=== PATIENT | male | born 1990 | race Hispanic/Latino ===

== ENCOUNTER 2017-11-29 00:39 | Inpatient (IN) | payer MEDICAID ==
[2017-11-29] MEDS ORDERED: levETIRAcetam 1,000 MG in Sodium Chloride 0.9% 100 ML IVPB STA (01:06)
[2017-11-29] MEDS ORDERED: Sodium Chloride 0.9% 1,000 ML IV ONE (01:07)
[2017-11-29] MEDS ORDERED: levETIRAcetam 500 MG in Sodium Chloride 0.9% 100 ML IVPB SCH (01:15)
[2017-11-29 01:29] LABS: BASO # 0.2 K/uL (0.0-0.2); BASO % 2.2 % (0.0-2.0); EOS # 0.4 K/uL (0.0-0.7); EOS % 3.1 % (0.0-4.0); HEMOGLOBIN 15.8 g/dL (12.0-18.0); LYMPH # 2.9 K/uL (1.0-4.3); MEAN CELL VOLUME 103.3 fL (80.0-94.0); MEAN CORPUSCULAR HEMOGLOBIN 35.8 pg (27.0-31.0); MEAN CORPUSCULAR HGB CONC 34.7 g/dL (33.0-37.0); MEAN PLATELET VOLUME 9.6 fL (7.2-11.7); MONO # 1.9 K/uL (0.0-0.8); MONO % 16.7 % (0.0-10.0); NEUT # 5.9 K/uL (1.8-7.0); RBC 4.42 Mil/uL (4.40-5.90); RED CELL DISTRIBUTION WIDTH 13.1 % (11.5-14.5); WHITE BLOOD COUNT 11.3 K/uL (4.8-10.8)
--- NOTE | 2017-11-29 01:50 | C.PDOC ---
History Of Present Illness 27 year old male with PMhx of pancreatitis is brought to the ED by family for evaluation of witnessed seizure. Patient's mother reports patient had generalized seizure, shaking all over that lasted for 3 minutes today [employer] REPA[employer]. Patient was recently in detox for alcohol, ex opioid abuser. Patient was recently diagnosed last week with pancreatitis secondary to alcoholism. Patient is also taking subutex and xanax. Patient states he has not had a drink in the last 8 days. Patient had another witnessed seizure while in the ED. Time Seen by Provider: 11/29/17 00:50 Chief Complaint (Nursing): Seizure History Per: Patient, Family History/Exam Limitations: clinical condition Recent Seizure Activity Began: Just Before Arrival Number Of Seizures: Multiple (2) Length Of Seizures (Duration): Minutes Quality Of Seizure: Generalized Precipitating Factor(s): Other Associated Symptoms: Bit Tongue Recent travel outside of the [place]: No Additional History Per: Patient Past Medical History Reviewed: Historical Data, Nursing Documentation, Vital Signs Vital Signs: Last Vital Signs Temp 98.4 F 11/29/17 00:45 Pulse 77 11/29/17 05:33 Resp 20 11/29/17 05:33 BP 120/77 11/29/17 05:33 Pulse Ox 97 11/29/17 05:33 - Medical History PMH: Anxiety, Pancreatitis, Seizures (4 yr ago r/t benzo withdrawal) Denies: Diabetes, Hepatitis, HIV, HTN, Chronic Kidney Disease, Sexually Transmitted Disease Surgical History: No Surg Hx - [facility] Procedures DETOXIFICATION SERVICES FOR SUBSTANCE ABUSE TREATMENT (04/30/16) GROUP STRETCHING MACHINE TENDER FRAME FOR SUBSTANCE ABUSE TREATMENT, PSYCHOEDUCATION (04/30/16) INDIV STRETCHING MACHINE TENDER FRAME FOR SUBSTANCE ABUSE TREATMENT, PSYCHOEDUCATION (04/30/16) INDIV STRETCHING MACHINE TENDER FRAME FOR SUBSTANCE ABUSE, COGNITIVE BEHAVIORAL (04/30/16) INDIV PSYCHOTHERAPY FOR SUBSTANCE ABUSE TREATMENT, SUPPORT (04/30/16) Family History: States: Unknown Family Hx - Social History Hx Tobacco Use: Yes Hx Alcohol Use: Yes (2 -3 pints vodka) Hx Substance Use: Yes (will not disclose) - Immunization History Hx Tetanus Toxoid Vaccination: Yes Hx Influenza Vaccination: Yes Hx Pneumococcal Vaccination: Yes Review Of Systems Constitutional: Negative for: Fever, Chills Eyes: Negative for: Pain, Vision Change ENT: Negative for: Ear Pain, Ear Discharge, Nose Congestion, Mouth Pain Cardiovascular: Negative for: Chest Pain, Palpitations, Edema, Light Headedness Respiratory: Negative for: Cough, Shortness of Breath Gastrointestinal: Negative for: Nausea, Vomiting, Abdominal Pain Genitourinary: Negative for: Dysuria, Incontinence, Hematuria Musculoskeletal: Negative for: Neck Pain, Shoulder Pain, Arm Pain, Back Pain Skin: Negative for: Rash Neurological: Negative for: Weakness, Numbness, Incoordination, Headache, Dizziness Physical Exam - Physical Exam Appears: Non-toxic Skin: Normal Color, Warm, Dry Head: Atraumatic, Normacephalic Eye(s): bilateral: Normal Inspection, PERRL, EOMI Ear(s): Bilateral: Normal Oral Mucosa: Moist Tongue: No Normal Appearing Lips: Normal Appearing Teeth: Normal Dentition Gingiva: Normal Appearing Throat: Normal Neck: Normal ROM, Supple Chest: Symmetrical Cardiovascular: Rhythm Regular Respiratory: Normal Breath Sounds, No Rales, No Rhonchi, No Wheezing Gastrointestinal/Abdominal: Soft, No Tenderness, No Guarding, No Rebound Extremity: Normal ROM, No Tenderness, No Swelling Neurological/Psych: Oriented x3, Normal Speech, Normal Motor, Normal Sensation Gait: Steady ED Course And Treatment - Laboratory Results Result Diagrams: 11/29/17 01:21 11/29/17 01:21 O2 Sat by Pulse Oximetry: 98 (ON RA) Pulse Ox Interpretation: Normal - Radiology CXR: Interpreted by Me, Viewed By Me CXR Interpretation: Yes: No Acute Disease. No: Infiltrates Critical Care Time - Critical Care Note Total Time (in mins): 30 Documented critical care: time excludes all time spent performing seperately billable procedures. Medical Decision Making Medical Decision Making: Plan: * Labs * white count - 11 * CXR- ordered and reviewe - no acute pathology * Ativan 2 mg (x2) with siezure resolution * IV fluids * Keppra 500 mg IVPB * UA anion gap 21. lactic acid elevated lipase almost 3000. aggressive fluid hydration While interviewing the patient, patient had another seizure. ativan and keppra were given. Patient still shaking. 2:30 - Paged Dr. Gray for admission 2:35- Spoke with Dr. Marie ICU who came down and evaluated the patient/ does not feel pt status requires ICU care at this time 2:45 - paged Dr. Gray for a second time 3:04 - called Dr. Gray for a third time pt resting. alcohol withdrawal symptoms with seizures; Disposition - Disposition Disposition: HOSPITALIZED Disposition Time: 06:31 Condition: GUARDED - Clinical Impression Clinical Impression: Seizure, Tonic-clonic seizure, Acute pancreatitis, Alcohol withdrawal - Scribe Statement The provider has reviewed the documentation as recorded by the Scribe Jacques Wellington All medical record entries made by the Scribe were at my direction and personally dictated by me. I have reviewed the chart and agree that the record accurately reflects my personal performance of the history, physical exam, medical decision making, and the department course for this patient. I have also personally directed, reviewed, and agree with the discharge instructions and disposition.
[2017-11-29 02:03] LABS: ALB/GLOB RATIO 1.5 (1.0-2.1); ALT/SGPT 373 U/L (21-72); AST/SGOT 171 U/L (17-59); BLOOD UREA NITROGEN 6 mg/dL (9-20); CALCIUM 10.4 mg/dl (8.6-10.4); GFR NON-AFRICAN AMERICAN > 60; LIPASE 2991 U/L (23-300)
--- NOTE | 2017-11-29 03:02 | CP.PCM.CON ---
History of Present Illness - History of Present Illness History of Present Illness: CCM 27 yo male with hx pancreatitis /etoh abuse/ seizures who had seizure at home then again in ED. Pt treated with ativan 4mg IV and started on KeppraPt claims pancreatitis 1 week ago and no ETOH in 1 week. Claims only minimal abd. discomfort. No n /v /sob /fever/urinary sx. ROS- as noted All- PCN Social +tob/ + etoh/ no drugs Meds- reviewed FH- Unknown Awake, responsive, apropriate Perrl Neck- no jvd lungs- bilat bs heart-rr Abd- bs+, soft,no localized tenderness Ext- no edema Neuro-oriented, nonfocal Labs & [id number] A&P Seizure Pancreatitis Transaminitis ETOH Abuse r/o ETOH Withdrawal Anxiety cont Keppra Ativan prn observe for withdrawal maintain optimal lytes f/u labs/ lipase consider CT Abd DVT prophylaxis d/w ED staff re-consult PRN Past Patient History - Infectious Disease Hx of Infectious Diseases: None - Past Social History Smoking Status: Current Some Days Smoker - CARDIAC Hx Hypertension: No - PULMONARY Hx Respiratory Disorders: No Hx Tuberculosis: No - NEUROLOGICAL Hx Seizures: Yes (4 yr ago r/t benzo withdrawal) - HEENT Hx HEENT Problems: No - RENAL Hx Chronic Kidney Disease: No - ENDOCRINE/METABOLIC Hx Endocrine Disorders: No - HEMATOLOGICAL/ONCOLOGICAL Hx Human Immunodeficiency Virus (HIV): No - INTEGUMENTARY Hx Dermatological Problems: No - MUSCULOSKELETAL/RHEUMATOLOGICAL Hx Musculoskeletal Disorders: No Hx Falls: No - GASTROINTESTINAL Hx Pancreatitis: Yes - GENITOURINARY/GYNECOLOGICAL Hx Sexually Transmitted Disorders: No - PSYCHIATRIC Hx Anxiety: Yes Hx Substance Use: Yes (will not disclose) - SURGICAL HISTORY Hx Surgeries: Yes Other/Comment: Adenoidectomy, - ANESTHESIA Hx Anesthesia: Yes Hx Anesthesia Reactions: No Meds Allergies/Adverse Reactions: Allergies Allergy/AdvReac Type Severity Reaction Status Date / Time Penicillins Allergy SWELLING Verified 11/29/17 00:44 Results - Vital Signs Recent Vital Signs: Last Vital Signs Temp 98.4 F 11/29/17 00:45 Pulse 105 H 11/29/17 02:59 Resp 24 11/29/17 02:59 BP 118/69 11/29/17 02:59 Pulse Ox 99 11/29/17 02:59 - Labs Result Diagrams: 11/29/17 01:21 11/29/17 01:21 Labs: Laboratory Results - last 24 hr 11/29/17 11/29/17 01:21 01:21 WBC 11.3 H D RBC 4.42 Hgb 15.8 D Hct 45.7 MCV 103.3 H MCH 35.8 H MCHC 34.7 RDW 13.1 Plt Count 319 D MPV 9.6 Neut % (Auto) 52.0 Lymph % (Auto) 26.0 [place] % (Auto) 16.7 H Eos % (Auto) 3.1 Baso % (Auto) 2.2 H Neut # (Auto) 5.9 Lymph # (Auto) 2.9 [place] # (Auto) 1.9 H Eos # (Auto) 0.4 Baso # (Auto) 0.2 Sodium 141 Potassium 3.7 Chloride 102 Carbon Dioxide 23 Anion Gap 21 H BUN 6 L Creatinine 0.7 L Est GFR ( Amer) > 60 Est GFR (Non-Af Amer) > 60 Random Glucose 133 H Calcium 10.4 Total Bilirubin 1.1 AST 171 H D ALT 373 H Alkaline Phosphatase 109 Total Protein 8.4 H Albumin 5.0 Globulin 3.4 Albumin/Globulin Ratio 1.5 Lipase 2991 H Assessment & Plan (1) Seizure Status: Acute (2) Alcohol withdrawal Status: Acute (3) Pancreatitis Status: Acute (4) Transaminitis Status: Acute
[2017-11-29] MEDS ORDERED: Folic Acid 1 MG, Thiamine 100 MG, Multivitamin (MVI) 10 ML in Dextrose 5% In Water 1,00... IV SCH (04:15)
[2017-11-29 04:56] LABS: SQUAMOUS EPITHIAL < 1 /hpf (0-5); URINE BILIRUBIN NEGATIVE (NEGATIVE); URINE BLOOD NEGATIVE (NEGATIVE); URINE CLARITY Clear (Clear); URINE COLOR Yellow (YELLOW); URINE GLUCOSE (UA) NORMAL (Normal); URINE LEUKOCYTE ESTERASE NEG Leu/uL (Negative); URINE PROTEIN NEGATIVE (NEGATIVE); URINE UROBILINOGEN NORMAL mg/dL (0.2-1.0)
[2017-11-29 05:04] LABS: BARBITURATES, UR NEGATIVE (NEGATIVE); OPIATES, UR NEGATIVE (NEGATIVE); PHENCYCLIDINE, UR NEGATIVE (NEGATIVE)
[2017-11-29 05:12] LABS: BENZODIAZEPINES, UR POSITIVE (NEGATIVE)
--- NOTE | 2017-11-29 09:32 | RAD ---
Date of service: 11/29/2017 PROCEDURE: CHEST RADIOGRAPH, 1 VIEW HISTORY: abd pain COMPARISON: Comparison chest 11/21/2017 FINDINGS: LUNGS: Clear. PLEURA: No pneumothorax or pleural fluid seen. CARDIOVASCULAR: Normal. OSSEOUS STRUCTURES: No significant abnormalities. VISUALIZED UPPER ABDOMEN: Normal. OTHER FINDINGS: None. IMPRESSION: No active disease.
--- NOTE | 2017-11-29 12:19 | PCM.PSYCH ---
Initial Psychiatric Evaluation - Initial Psychiatric Evaluation Type of Admission: Voluntary Legal Status: Capacity Chief Complaint (in patient's own words): "I had a seizure" History of Present Illness and Precipitating Events: pt is a 27 y/o M, single, no children, living with his parents at home. Pt with hx of pancreatitis/ EtOh abuse/ seizures presented to the ER earlier today due to seizure that occur yesterday. pt had pancreatitis 1 week ago and was admitted to the hospital and discharged 2 days ago. pt was home yesterday when the seizure occurred, his mom called EMS and he was brought to [facility]. pt states he does not remember what happened before the seizure and he was "out for 4 mins". pt had similar seizure 2 years ago due to detoxing from alcohol. pt has a hx of alcohol abuse, started drinking alcohol at the age of 13-14 and drinks 2-3 pints per day of vodka on average. pt's last drink was 1 week ago. pt has multiple detox attempts from alcohol and polysubstance abuse. longest detox was 2 months at a program in [place]. pt also has a hx of xanax and oxycotin in the past. Last xanax dosage was 20 days ago. pt has not used oxycotin in "many years". pt smokes 1PPD. pt denies depression, SI/HI, hallucinations, manic symptoms, paranoia, anxiety, chills Psych Hx: unremarkable Medical hx: Unremarkable Family Psych: unremarkable Legal Hx: Unremarkable Current Medications: Active Medications Generic Name Dose Route Start Last Admin Trade Name Freq PRN Reason Stop Dose Admin Famotidine 20 mg 11/29/17 10:00 Pepcid IVP DAILY CITLALI Folic Acid 1 mg/ Thiamine HCl 1,011.2 mls @ 100 mls/hr 11/29/17 04:15 04:52 100 mg/ Multivitamins/Vitamin IV 100 mls/hr C 10 ml/ Dextrose .Q10H7M CITLALI Administration Lorazepam 2 mg 11/29/17 04:50 11/29/17 04:52 Ativan IVP 2 mg Q4 PRN Administration Agitation Past Psychiatric History - Past Psychiatric History Pertinent Medical Hx (Current Medical&Sleep Prob, Allergies): Allergies Allergy/AdvReac Type Severity Reaction Status Date / Time Penicillins Allergy SWELLING Verified 11/29/17 00:44 No Known Home Med 11/29/17 Review of Systems - Psychiatric Psychiatric: Anxiety. absent: Auditory Hallucinations, Depression, Hallucinations, Homicidal Ideation, Paranoia, Suicidal Ideation, Visual Hallucinations, Tactile Hallucinations Mental Status Examination - Personal Presentation Personal Presentation: Looks stated age - Affect Affect: Broad - Motor Activity Motor Activity: Calm - Reliability in Providing Information Reliability in Providing Information: Good - Speech Speech: Organized - Mood Mood: Neutral - Formal Thought Process Formal Thought Process: No Impairment - Obsessions/Compulsions Obsessions: No Compulsions: No - Cognitive Functions Orientation: Person, Place, Situation, Time Sensorium: Alert - Risk Risk: Seizure DSM 5 DX - DSM 5 DSM 5 Diagnosis: Seizure disorder EtOh Withdrawal EtOH abuse disorder - Recommended/Plan of Treatment Treatment Recommendations and Plan of Treatment: Ativan for Alcohol Withdrawal As need medications All risks, benefits and alternatives of the meds discussed, and the pt agreed and understood. Attend groups and activities Individual therapy daily Psychoeducation and support daily Encourage compliance with meds and after care Refer to outpatient program Teach healthy lifestyle methods, i.e. diet, exercise, meditation Smoking cessation and patch if needed
--- NOTE | 2017-11-29 15:44 | US ---
Date of service: 11/29/2017 HISTORY: pancreaittis COMPARISON: 11/21/[address] of the abdomen TECHNIQUE: Sonographic evaluation of the abdomen. FINDINGS: LIVER: Measures enlarged at 21.5 cm. Diffuse increased echogenicity of the liver parenchyma. No mass. No intrahepatic bile duct dilatation. GALLBLADDER: Unremarkable. No gallstones. COMMON BILE DUCT: Measures 3 mm. No stones. No dilatation. PANCREAS: Unremarkable as visualized. No mass. No ductal dilatation. RIGHT KIDNEY: Measures 11 point sick by 4.4 x 5.5cm. Normal echogenicity. No calculus, mass, or hydronephrosis. LEFT KIDNEY: Measures 10.6 x 5.2 x 5.2cm. Normal echogenicity. No calculus, mass, or hydronephrosis. SPLEEN: Normal in size and contour. No mass. AORTA: No aneurysmal dilatation. IVC: Unremarkable. OTHER FINDINGS: None. IMPRESSION: Hepatomegaly with diffuse increased echogenicity compatible with hepatic steatosis No gallbladder or discrete pancreatic pathology noted
[2017-11-29] MEDS: Dextrose 5%/0.45% NS 1,000 ML IV SCH (15:48)
--- NOTE | 2017-11-29 22:12 | CP.PCM.HP ---
Past Patient History - Infectious Disease Hx of Infectious Diseases: None - Past Medical History & Family History Past Medical History?: Yes - Past Social History Smoking Status: Heavy Smoker > 10 Cigarettes Daily - CARDIAC Hx Hypertension: No - PULMONARY Hx Respiratory Disorders: No Hx Tuberculosis: No - NEUROLOGICAL Hx Seizures: Yes (4 yr ago r/t benzo withdrawal) - HEENT Hx HEENT Problems: No - RENAL Hx Chronic Kidney Disease: No - ENDOCRINE/METABOLIC Hx Endocrine Disorders: No - HEMATOLOGICAL/ONCOLOGICAL Hx Human Immunodeficiency Virus (HIV): No - INTEGUMENTARY Hx Dermatological Problems: No - MUSCULOSKELETAL/RHEUMATOLOGICAL Hx Falls: No - GASTROINTESTINAL Hx Pancreatitis: Yes - GENITOURINARY/GYNECOLOGICAL Hx Sexually Transmitted Disorders: No - PSYCHIATRIC Hx Anxiety: Yes Hx Substance Use: Yes (pain killers, heroin, crack, cocaine, ecstasy, javier, but pt claimed he sto) - SURGICAL HISTORY Hx Surgeries: Yes Hx Tonsillectomy: Yes Other/Comment: Adenoidectomy, - ANESTHESIA Hx Anesthesia: Yes Hx Anesthesia Reactions: No Hx Malignant Hyperthermia: No Has any member of the family had a problem w/ anesthesia?: No Meds Allergies/Adverse Reactions: Allergies Allergy/AdvReac Type Severity Reaction Status Date / Time Penicillins Allergy SWELLING Verified 11/29/17 00:44 Results - Vital Signs Recent Vital Signs: Last Vital Signs Temp 98.4 F 11/29/17 12:00 Pulse 88 11/29/17 14:04 Resp 21 11/29/17 14:04 BP 120/78 11/29/17 14:04 Pulse Ox 100 11/29/17 12:00 - Labs Result Diagrams: 11/29/17 01:21 11/29/17 01:21 Labs: Laboratory Results - last 24 hr 11/29/17 11/29/17 11/29/17 01:21 01:21 04:45 WBC 11.3 H D RBC 4.42 Hgb 15.8 D Hct 45.7 MCV 103.3 H MCH 35.8 H MCHC 34.7 RDW 13.1 Plt Count 319 D MPV 9.6 Neut % (Auto) 52.0 Lymph % (Auto) 26.0 [place] % (Auto) 16.7 H Eos % (Auto) 3.1 Baso % (Auto) 2.2 H Neut # (Auto) 5.9 Lymph # (Auto) 2.9 [place] # (Auto) 1.9 H Eos # (Auto) 0.4 Baso # (Auto) 0.2 Sodium 141 Potassium 3.7 Chloride 102 Carbon Dioxide 23 Anion Gap 21 H BUN 6 L Creatinine 0.7 L Est GFR ( Amer) > 60 Est GFR (Non-Af Amer) > 60 Random Glucose 133 H Calcium 10.4 Total Bilirubin 1.1 AST 171 H D ALT 373 H Alkaline Phosphatase 109 Total Protein 8.4 H Albumin 5.0 Globulin 3.4 Albumin/Globulin Ratio 1.5 Lipase 2991 H Urine Color Yellow Urine Clarity Clear Urine pH 6.0 Ur Specific [place] 1.008 Urine Protein Negative Urine Glucose (UA) Normal Urine Ketones Negative Urine Blood Negative Urine Nitrate Negative Urine Bilirubin Negative Urine Urobilinogen Normal Ur Leukocyte Esterase Neg Urine WBC (Auto) 3 Urine RBC (Auto) < 1 Ur Squamous Epith Cells < 1 Hyaline Casts 3-5 H Urine Opiates Screen Urine Methadone Screen Ur Barbiturates Screen Ur Phencyclidine Scrn Ur Amphetamines Screen U Benzodiazepines Scrn U Oth Cocaine Metabols U Cannabinoids Screen 11/29/17 04:45 WBC RBC Hgb Hct MCV MCH MCHC RDW Plt Count MPV Neut % (Auto) Lymph % (Auto) [place] % (Auto) Eos % (Auto) Baso % (Auto) Neut # (Auto) Lymph # (Auto) [place] # (Auto) Eos # (Auto) Baso # (Auto) Sodium Potassium Chloride Carbon Dioxide Anion Gap BUN Creatinine Est GFR ( Amer) Est GFR (Non-Af Amer) Random Glucose Calcium Total Bilirubin AST ALT Alkaline Phosphatase Total Protein Albumin Globulin Albumin/Globulin Ratio Lipase Urine Color Urine Clarity Urine pH Ur Specific [place] Urine Protein Urine Glucose (UA) Urine Ketones Urine Blood Urine Nitrate Urine Bilirubin Urine Urobilinogen Ur Leukocyte Esterase Urine WBC (Auto) Urine RBC (Auto) Ur Squamous Epith Cells Hyaline Casts Urine Opiates Screen Negative Urine Methadone Screen Negative Ur Barbiturates Screen Negative Ur Phencyclidine Scrn Negative Ur Amphetamines Screen Negative U Benzodiazepines Scrn Positive U Oth Cocaine Metabols Negative U Cannabinoids Screen Negative
[2017-11-30] MEDS: Dextrose 5%/0.45% NS 1,000 ML IV SCH ×3 (02:10→21:27)
[2017-11-30 06:48] LABS: BASO # 0.2 K/uL (0.0-0.2); BASO % 2.1 % (0.0-2.0); EOS # 0.2 K/uL (0.0-0.7); EOS % 2.6 % (0.0-4.0); HEMOGLOBIN 13.2 g/dL (12.0-18.0); LYMPH # 1.6 K/uL (1.0-4.3); MEAN CELL VOLUME 103.8 fL (80.0-94.0); MEAN CORPUSCULAR HGB CONC 34.7 g/dL (33.0-37.0); MEAN PLATELET VOLUME 9.7 fL (7.2-11.7); MONO # 1.5 K/uL (0.0-0.8); MONO % 19.6 % (0.0-10.0); NEUT # 4.3 K/uL (1.8-7.0); NEUT % 55.7 % (50.0-75.0); NRBC % 0.1 % (0.0-2.0); RBC 3.66 Mil/uL (4.40-5.90); RED CELL DISTRIBUTION WIDTH 12.7 % (11.5-14.5); WHITE BLOOD COUNT 7.8 K/uL (4.8-10.8)
[2017-11-30 06:51] LABS: ALB/GLOB RATIO 1.7 (1.0-2.1); ALBUMIN 3.9 g/dL (3.5-5.0); ALT/SGPT 240 U/L (21-72); AST/SGOT 112 U/L (17-59); BLOOD UREA NITROGEN 3 mg/dL (9-20); CALCIUM 8.8 mg/dl (8.6-10.4); GFR NON-AFRICAN AMERICAN > 60; LIPASE 1770 U/L (23-300)
--- NOTE | 2017-11-30 07:43 | HP ---
CHIEF COMPLAINT: Seizure episode x1. HISTORY OF PRESENT ILLNESS: This is a 27-year-old white male with history of alcoholism. He was recently at [facility] with pancreatitis due to alcoholism, and he was advised not to drink. He was referred back to see his primary medical doctor and to contact for alcohol detox. The patient went home. He continued to drink, he drank, and he also smokes. He denies any substance abuse, and on the day of admission, mother noticed generalized tonic-clonic seizure, shaking all over his body, lasting for few minutes prior to arrival, and there was alcohol smell, poor condition, and the patient was referred to emergency room, and the patient is hospitalized. The patient is currently in ICU. He denies any head injury. He denies seizure. He has abdominal pain. He denies any nausea or vomiting. He denies any cough, sore throat, runny nose. He denies any polyuria, polydipsia, polyphagia. He denies any hematuria, pyuria. He denies any sneezing, itchy eyes, itchy nose. He denies any joint pain, hip pain, leg pain. PAST MEDICAL HISTORY: Alcoholism, alcohol abuse. SOCIAL HISTORY: Smokes and drinks. CURRENT MEDICATIONS: Unknown. PHYSICAL EXAMINATION: GENERAL: A young male, in no distress. VITAL SIGNS: BP 120/78, pulse 74, respiratory rate 21, temperature 98.4. SKIN: No rashes. HEENT: Atraumatic, normocephalic. Negative pallor. Negative jaundice. Extraocular movements are intact. NECK: Supple. No JVD CHEST WALL: Bilaterally symmetrical expansion. LUNGS: Clear. No rales, no rhonchi. CVS: S1 and S2 regular. RECTAL AND PELVIC: Negative. EXTREMITIES: Normal. COSTUME DIRECTOR: Normal. ASSESSMENT: 1. Seizure, most likely it is alcohol induced seizure. 2. Alcoholism. 3. Pancreatitis. PLAN: Admit. Detailed orders written. Seen and examined. Polo Gray MD
[2017-11-30] MEDS: Folic Acid 1 MG, Thiamine 100 MG, Multivitamin (MVI) 10 ML in Dextrose 5% In Water 1,00... IVPB SCH (17:23)
--- NOTE | 2017-11-30 22:40 | CP.PCM.PN ---
Objective - Vital Signs/Intake and Output Vital Signs (last 24 hours): Temp Pulse Resp BP Pulse Ox 97.9 F 72 25 H 121/80 100 11/30/17 16:00 11/30/17 16:05 11/30/17 16:05 11/30/17 16:05 11/30/17 16:00 Intake and Output: 11/30/17 12/01/17 18:59 06:59 Intake Total 1340 Output Total 1375 Balance -35 - Medications Medications: Current Medications Famotidine (Pepcid) 20 mg IVP DAILY [facility] Last Admin: 11/30/17 15:15 Dose: 20 mg Folic Acid 1 mg/ Thiamine HCl 100 mg/ Multivitamins/Vitamin C 10 ml/ Dextrose 1 ,011.2 mls @ 100 mls/hr IVPB DAILY [facility] Last Admin: 11/30/17 17:23 Dose: 100 mls/hr Dextrose/Sodium Chloride (Dextrose 5%/0.45% Ns 1000 Ml) 1,000 mls @ 100 mls/hr IV .Q10H [facility] Last Admin: 11/30/17 21:27 Dose: Not Given Lorazepam (Ativan) 2 mg IVP Q4 PRN PRN Reason: Agitation Last Admin: 11/30/17 20:22 Dose: 2 mg - Labs Labs: 11/30/17 06:18 11/30/17 06:16
[2017-12-01] MEDS: Dextrose 5%/0.45% NS 1,000 ML IV SCH (02:42)
[2017-12-01 07:37] LABS: AMYLASE 174 U/L (30-110); BLOOD UREA NITROGEN 2 mg/dL (9-20); CALCIUM 9.1 mg/dl (8.6-10.4); GFR NON-AFRICAN AMERICAN > 60; LIPASE 1547 U/L (23-300)
[2017-12-01 07:52] LABS: BASO # 0.2 K/uL (0.0-0.2); BASO % 2.7 % (0.0-2.0); EOS # 0.3 K/uL (0.0-0.7); EOS % 3.9 % (0.0-4.0); HEMOGLOBIN 13.4 g/dL (12.0-18.0); LYMPH # 1.7 K/uL (1.0-4.3); LYMPH % 24.2 % (20.0-40.0); MEAN CELL VOLUME 102.7 fL (80.0-94.0); MEAN CORPUSCULAR HEMOGLOBIN 35.6 pg (27.0-31.0); MEAN CORPUSCULAR HGB CONC 34.7 g/dL (33.0-37.0); MEAN PLATELET VOLUME 9.2 fL (7.2-11.7); MONO # 1.3 K/uL (0.0-0.8); MONO % 18.8 % (0.0-10.0); NEUT # 3.5 K/uL (1.8-7.0); NEUT % 50.4 % (50.0-75.0); RBC 3.75 Mil/uL (4.40-5.90); RED CELL DISTRIBUTION WIDTH 12.5 % (11.5-14.5); WHITE BLOOD COUNT 6.9 K/uL (4.8-10.8)
--- NOTE | 2017-12-01 10:01 | PN ---
DATE: 11/30/2017 SUBJECTIVE: The patient is afebrile. He feels better. He has decreased nausea, vomiting, abdominal pain. No recent seizure. PHYSICAL EXAMINATION: VITAL SIGNS: BP 131/80, pulse 86, respiratory rate 20, temperature 98.3. LUNGS: Clear. CARDIOVASCULAR: S1 and S2, regular. ABDOMEN: Soft. ASSESSMENT: 1. Hypokalemia. 2. Pancreatitis. 3. Seizure, most likely due to alcohol. PLAN: Monitor the patient. Polo Gray MD
[2017-12-01] MEDS: Folic Acid 1 MG, Thiamine 100 MG, Multivitamin (MVI) 10 ML in Dextrose 5% In Water 1,00... IVPB SCH (10:26)
--- NOTE | 2017-12-01 18:13 | CP.PCM.CON ---
History of Present Illness - History of Present Illness History of Present Illness: PGY-2 neurology consult note for Dr Haque CC- seizure activity HPI- Patient is a 27 yo M with pmh alcohol, opioid and benzodiazepine abuse w/ previous detox attempts, seizure activity 2/2 to alcohol withdrawal, pancreatitis, hepatic steatosis, asthma, and anxiety who was brought in for seizure activity. 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 On the night of admission, patient had a witnessed, whole body convulsion that lasted 3 -4min. He was taken by ems to the ED and had another similar seizure in the ED. While in the ED he was given Ativan 2mg IV x2 with resolution of seizure and was started on keppra 500mg. He was admitted to ICU and has not had any further seizure activity. At the time of exam he denies headache, blurry vision, dizziness, lightheadedness, numbness, weakness, paresthesias. PMHx: anxiety, alcohol abuse/withdrawal, opioid abuse/withdrawal PSHx: adenoidectomy, tonsillectomy, eustachian tubes b/l Family Hx: unknown Social Hx: 2 pints vodka/day, smokes 1 ppd, xanax/subutex use; lives with aunt and uncle in [place], unemployed Home medications: unknown Allergies: PCN (hives) PMD: None Review of Systems - Constitutional Constitutional: absent: Chills, Fever - EENT Eyes: absent: Blurred Vision Ears: absent: Tinnitus - Cardiovascular Cardiovascular: absent: Chest Pain - Respiratory Respiratory: absent: Cough, Dyspnea - Gastrointestinal Gastrointestinal: Abdominal Pain. absent: Diarrhea - Genitourinary Genitourinary: absent: Dysuria - Musculoskeletal Musculoskeletal: absent: Abnormal Gait - Neurological Neurological: absent: Behavioral Changes, Convulsions, Dizziness, Focal Weakness , Headaches, Lack of Coordination, Loss of Vision, Syncope, Vertigo, Weakness Past Patient History - Infectious Disease Hx of Infectious Diseases: None - Past Medical History & Family History Past Medical History?: Yes - Past Social History Smoking Status: Heavy Smoker > 10 Cigarettes Daily - CARDIAC Hx Hypertension: No - PULMONARY Hx Respiratory Disorders: No Hx Tuberculosis: No - NEUROLOGICAL Hx Seizures: Yes (4 yr ago r/t benzo withdrawal) - HEENT Hx HEENT Problems: No - RENAL Hx Chronic Kidney Disease: No - ENDOCRINE/METABOLIC Hx Endocrine Disorders: No - HEMATOLOGICAL/ONCOLOGICAL Hx Human Immunodeficiency Virus (HIV): No - INTEGUMENTARY Hx Dermatological Problems: No - MUSCULOSKELETAL/RHEUMATOLOGICAL Hx Falls: No - GASTROINTESTINAL Hx Pancreatitis: Yes - GENITOURINARY/GYNECOLOGICAL Hx Sexually Transmitted Disorders: No - PSYCHIATRIC Hx Anxiety: Yes Hx Substance Use: Yes (pain killers, heroin, crack, cocaine, ecstasy, javier, but pt claimed he sto) - SURGICAL HISTORY Hx Surgeries: Yes Hx Tonsillectomy: Yes Other/Comment: Adenoidectomy, - ANESTHESIA Hx Anesthesia: Yes Hx Anesthesia Reactions: No Hx Malignant Hyperthermia: No Has any member of the family had a problem w/ anesthesia?: No Meds Allergies/Adverse Reactions: Allergies Allergy/AdvReac Type Severity Reaction Status Date / Time Penicillins Allergy SWELLING Verified 11/29/17 00:44 - Medications Medications: Current Medications Famotidine (Pepcid) 20 mg PO DAILY [facility] Folic Acid 1 mg/ Thiamine HCl 100 mg/ Multivitamins/Vitamin C 10 ml/ Dextrose 1 ,011.2 mls @ 100 mls/hr IVPB DAILY [facility] Last Admin: 12/01/17 10:26 Dose: 100 mls/hr Dextrose/Sodium Chloride (Dextrose 5%/0.45% Ns 1000 Ml) 1,000 mls @ 100 mls/hr IV .Q10H [facility] Last Admin: 12/01/17 02:42 Dose: 100 mls/hr Lorazepam (Ativan) 2 mg IVP Q4 PRN PRN Reason: Agitation Last Admin: 12/01/17 14:31 Dose: 2 mg Physical Exam - Constitutional Appears: Well, Non-toxic, No Acute Distress - Head Exam Head Exam: ATRAUMATIC, NORMAL INSPECTION - Eye Exam Eye Exam: EOMI, Normal appearance, PERRL. absent: Nystagmus, Scleral icterus - ENT Exam ENT Exam: Mucous Membranes Moist - Neck Exam Neck exam: Positive for: Lymphadenopathy. Negative for: Tenderness - Respiratory Exam Respiratory Exam: Clear to Auscultation Bilateral, NORMAL BREATHING PATTERN. absent: Rales, Rhonchi, Wheezes - Cardiovascular Exam Cardiovascular Exam: REGULAR RHYTHM, +S1, +S2. absent: Tachycardia, JVD, Systolic Murmur - GI/Abdominal Exam GI & Abdominal Exam: Normal Bowel Sounds, Soft. absent: Tenderness - Extremities Exam Extremities exam: Positive for: normal inspection - Neurological Exam Neurological exam: Alert, CN II-XII Intact, Normal Gait, Oriented x3, Reflexes Normal - Psychiatric Exam Psychiatric exam: Normal Affect - Skin Skin Exam: Normal Color, Warm Results - Vital Signs Recent Vital Signs: Last Vital Signs Temp 98.1 F 12/01/17 16:00 Pulse 74 12/01/17 16:00 Resp 20 12/01/17 16:00 BP 123/85 12/01/17 16:00 Pulse Ox 100 12/01/17 16:00 - Labs Result Diagrams: 12/01/17 07:11 12/01/17 07:11 Labs: Laboratory Results - last 24 hr 12/01/17 12/01/17 07:11 07:11 WBC 6.9 RBC 3.75 L Hgb 13.4 Hct 38.5 MCV 102.7 H MCH 35.6 H MCHC 34.7 RDW 12.5 Plt Count 277 MPV 9.2 Neut % (Auto) 50.4 Lymph % (Auto) 24.2 [place] % (Auto) 18.8 H Eos % (Auto) 3.9 Baso % (Auto) 2.7 H Neut # (Auto) 3.5 Lymph # (Auto) 1.7 [place] # (Auto) 1.3 H Eos # (Auto) 0.3 Baso # (Auto) 0.2 Sodium 142 Potassium 3.5 L Chloride 107 Carbon Dioxide 24 Anion Gap 14 BUN 2 L Creatinine 0.6 L Est GFR ( Amer) > 60 Est GFR (Non-Af Amer) > 60 Random Glucose 128 H Calcium 9.1 Amylase 174 H D Lipase 1547 H Assessment & Plan - Assessment and Plan (Free Text) Plan: Patient is a 27 yo M with pmh alcohol/opioid/benzodiazepine abuse w/ previous detox attempts, seizure activity 2/2 to alcohol withdrawal, pancreatitis, hepatic steatosis, asthma, and anxiety who was brought in for seizure activity: Seizure Activity -Two seizures reported, 1 at home and 1 in ED -Patient states last drink was 8 days ago however per primary note patient continued to drink after being discharged recently, alcohol level not drawn -Seizure likely 2/2 alcohol withdrawal -Ativan 2mg IVP Q4H prn for seizure activity -Seizure precautions -No further imaging necessary, no AED agents necessary as seizure likely 2/2 to alcohol withdrawal Case discussed with Dr Haque
--- NOTE | 2017-12-01 22:09 | PN ---
DATE: 12/01/2017 LOCATION: [address]. SUBJECTIVE: This is a 27 years old male seen and examined in rounds, tolerating liquid diet well without any reported nausea or vomiting or active bleeding. No reported chest pain or palpitation. The patient requested soft bland diet. LABORATORY DATA: Most recent lab results showed normal CBC with low potassium 3.5, low BUN and creatinine, blood glucose 128, amylase of 174, lipase down to 1547. PHYSICAL EXAMINATION: GENERAL: A 27 years old male more awake, alert, afebrile, oriented. VITAL SIGNS: Pulse of 70, respiratory rate 20 to 22, blood pressure 128/82. HEENT: Showed pale dry oral mucous membrane. Nonicteric sclerae. LUNGS: Few scattered crepitation. Decrease air entry at bases. HEART: Positive S1 and S2 with increased rate. ABDOMEN: Soft with slight generalized tenderness. No masses or organomegaly. No rebound tenderness or guarding. EXTREMITIES: No significant clubbing, cyanosis or edema. IMPRESSION: 1. Acute pancreatitis, improving gradually, clinically and biochemically. 2. Known history of seizure disorder most likely alcohol induced. 3. Severe anxiety syndrome. 4. Electrolyte imbalance with abnormal liver function test secondary to above. SUGGESTION: 1. Continue current management. 2. Advance oral intake. 3. Repeat serum lipase, amylase level if there is subsequent drop and improvement when discharged home. Further recommendation to follow. Darian Andrade MD
--- NOTE | 2017-12-01 22:31 | CP.PCM.PN ---
Objective - Vital Signs/Intake and Output Vital Signs (last 24 hours): Temp Pulse Resp BP Pulse Ox 98.1 F 74 20 123/85 100 12/01/17 16:00 12/01/17 16:00 12/01/17 16:00 12/01/17 16:00 12/01/17 16:00 Intake and Output: 12/01/17 12/02/17 18:59 06:59 Intake Total 1300 Balance 1300 - Medications Medications: Current Medications Famotidine (Pepcid) 20 mg PO DAILY [facility] Folic Acid 1 mg/ Thiamine HCl 100 mg/ Multivitamins/Vitamin C 10 ml/ Dextrose 1 ,011.2 mls @ 100 mls/hr IVPB DAILY [facility] Last Admin: 12/01/17 10:26 Dose: 100 mls/hr Dextrose/Sodium Chloride (Dextrose 5%/0.45% Ns 1000 Ml) 1,000 mls @ 100 mls/hr IV .Q10H [facility] Last Admin: 12/01/17 02:42 Dose: 100 mls/hr Lorazepam (Ativan) 2 mg IVP Q4H PRN PRN Reason: Agitation Last Admin: 12/01/17 22:24 Dose: 2 mg - Labs Labs: 12/01/17 07:11 12/01/17 07:11
[2017-12-02 07:32] LABS: BASO # 0.2 K/uL (0.0-0.2); BASO % 3.3 % (0.0-2.0); EOS # 0.2 K/uL (0.0-0.7); EOS % 3.3 % (0.0-4.0); HEMOGLOBIN 13.6 g/dL (12.0-18.0); LYMPH # 1.7 K/uL (1.0-4.3); LYMPH % 23.5 % (20.0-40.0); MEAN CORPUSCULAR HEMOGLOBIN 35.9 pg (27.0-31.0); MEAN CORPUSCULAR HGB CONC 34.9 g/dL (33.0-37.0); MEAN PLATELET VOLUME 9.3 fL (7.2-11.7); MONO # 1.1 K/uL (0.0-0.8); MONO % 14.7 % (0.0-10.0); NEUT % 55.2 % (50.0-75.0); NRBC % 0.1 % (0.0-2.0); PLATELET COUNT 313 K/uL (130-400); RBC 3.78 Mil/uL (4.40-5.90); RED CELL DISTRIBUTION WIDTH 12.6 % (11.5-14.5); WHITE BLOOD COUNT 7.3 K/uL (4.8-10.8)
[2017-12-02 08:00] LABS: ALB/GLOB RATIO 1.4 (1.0-2.1); ALBUMIN 3.9 g/dL (3.5-5.0); ALT/SGPT 202 U/L (21-72); AST/SGOT 142 U/L (17-59); BLOOD UREA NITROGEN 3 mg/dL (9-20); CALCIUM 9.5 mg/dl (8.6-10.4); GFR NON-AFRICAN AMERICAN > 60; LIPASE 1546 U/L (23-300)
[2017-12-02 08:11] VITALS: BP 112/75; RESP 20; TEMP 97.9; O2SAT 99
[2017-12-02 08:55] LABS: BANDS 2 % (0-2); BASOPHIL 3 % (0-2); EOSINOPHIL 4 % (0-4); LYMPHOCYTE 22 % (20-40); MONOCYTE 12 % (0-10); NEUTROPHIL 57 % (50-75); TOTAL CELLS COUNTED 100
[2017-12-02 08:56] LABS: PLATELET ESTIMATE NORMAL (NORMAL)
[2017-12-02] MEDS: Dextrose 5%/0.45% NS 1,000 ML IV SCH ×2 (09:05→13:40)
--- NOTE | 2017-12-02 09:46 | PN ---
DATE: 12/01/2017 SUBJECTIVE: The patient is afebrile. No shortness of breath. He has decreased nausea and vomiting. He is on diet. He is for discharge. PHYSICAL EXAMINATION VITAL SIGNS: BP 123/85, pulse 74, respiratory rate 20, and temperature 98.1. LUNGS: Clear CARDIOVASCULAR SYSTEM: S1 and S2, regular. ABDOMEN: Soft. ASSESSMENT: 1. Pancreatitis. 2. . 3. Alcohol induced seizure. PLAN: Continue current medications. Monitor the patient. Polo Gray MD
[2017-12-02] MEDS: Folic Acid 1 MG, Thiamine 100 MG, Multivitamin (MVI) 10 ML in Dextrose 5% In Water 1,00... IVPB SCH (10:40)
[2017-12-02 13:00] VITALS: PULSE 80
--- NOTE | 2017-12-02 13:22 | CP.PCM.PN ---
Subjective - Date & Time of Evaluation Date of Evaluation: 12/02/17 Time of Evaluation: 13:20 - Subjective Subjective: PATIENT SEEN AND EXAMINED AT THE BEDSIDE Objective - Vital Signs/Intake and Output Vital Signs (last 24 hours): Temp Pulse Resp BP Pulse Ox 97.9 F 80 20 112/75 99 12/02/17 07:10 12/02/17 07:32 12/02/17 07:10 12/02/17 07:10 12/02/17 07:10 - Medications Medications: Current Medications Famotidine (Pepcid) 20 mg PO DAILY [facility] Last Admin: 12/02/17 10:40 Dose: 20 mg Folic Acid 1 mg/ Thiamine HCl 100 mg/ Multivitamins/Vitamin C 10 ml/ Dextrose 1 ,011.2 mls @ 100 mls/hr IVPB DAILY [facility] Last Admin: 12/02/17 10:40 Dose: 100 mls/hr Dextrose/Sodium Chloride (Dextrose 5%/0.45% Ns 1000 Ml) 1,000 mls @ 100 mls/hr IV .Q10H [facility] Last Admin: 12/02/17 09:05 Dose: 100 mls/hr Lorazepam (Ativan) 2 mg IVP Q4H PRN PRN Reason: Agitation Last Admin: 12/02/17 08:02 Dose: 2 mg - Labs Labs: 12/02/17 06:15 12/02/17 06:15 Assessment and Plan - Assessment and Plan (Free Text) Assessment: FOLLOW UP WITH DR FUCHS IN HIS OFFICE 1-2 WEEK ---CALL FOR APPOINTMENT NEW PRESCRIPTION GIVEN THIAMINE MUTLTI VITAMIN FOLIC ACID ACITIVITY TOLERATED CALL DR FUCHS OR GO TO THE EMERGENCY ROOM IF SYMPTOMS RETURN OR WORSENING
--- NOTE | 2017-12-02 19:35 | PN ---
DATE: 12/02/2017 LOCATION: 564, bed B. SUBJECTIVE: This is a 27-year-old male, seen and examined in rounds with no complaint of abdominal pain, tolerating oral intake well. No nausea or vomiting. The entire chart is reviewed including, but not limited to the most recent lab and radiology study results and today's lab showed normal CBC with low creatinine. Blood glucose level 115, AST 141, ALT 202 with serum lipase of 1546, unchanged despite the patient free of symptoms. PHYSICAL EXAMINATION GENERAL: A 27-year-old male, awake, alert, oriented. VITAL SIGNS: Afebrile with pulse of 80, respiratory rate 18 to 20, and blood pressure 106/72. HEENT: Showed pale, dry oral mucous membrane mildly, nonicteric sclerae. LUNGS: Few scattered crepitation. Decreased air entry at bases. HEART: Positive S1 and S2. ABDOMEN: Soft. Bowel sounds are present. No mass or organomegaly. No rebound tenderness or guarding. EXTREMITIES: Without edema, clubbing, or cyanosis. NEUROLOGICAL: No reported new neurological deficits, sensory, or motor. IMPRESSION: 1. Acute pancreatitis, gradually improving. 2. Abnormal liver function tests, most likely alcohol induced. 3. Known history of severe anxiety syndrome. 4. Known history of alcohol-induced seizure disorder, stable. SUGGESTIONS: 1. Agree with their plan. 2. Followup as outpatient with repeat lipase and amylase level. 3. Further recommendation to follow. Darian Andrade MD
--- NOTE | 2017-12-03 00:01 | CP.PCM.DIS ---
Provider - Provider Date of Admission: 11/29/17 03:58 Attending physician: Polo Gray MD Primary care physician: Non [facility] Provider Hospital Course - Lab Results Lab Results: Micro Results 12/01/17 06:28 Naris MRSA Culture - Final MRSA NOT DETECTED 11/29/17 09:33 Naris MRSA Culture (Admit) - Final MRSA NOT DETECTED Most Recent Lab Values WBC 7.3 K/uL (4.8-10.8) 12/02/17 06:15 RBC 3.78 Mil/uL (4.40-5.90) L 12/02/17 06:15 Hgb 13.6 g/dL (12.0-18.0) 12/02/17 06:15 Hct 39.0 % (35.0-51.0) 12/02/17 06:15 MCV 103.0 fL (80.0-94.0) H 12/02/17 06:15 MCH 35.9 pg (27.0-31.0) H 12/02/17 06:15 MCHC 34.9 g/dL (33.0-37.0) 12/02/17 06:15 RDW 12.6 % (11.5-14.5) 12/02/17 06:15 Plt Count 313 K/uL (130-400) 12/02/17 06:15 MPV 9.3 fL (7.2-11.7) 12/02/17 06:15 Neut % (Auto) 55.2 % (50.0-75.0) 12/02/17 06:15 Lymph % (Auto) 23.5 % (20.0-40.0) 12/02/17 06:15 [place] % (Auto) 14.7 % (0.0-10.0) H 12/02/17 06:15 Eos % (Auto) 3.3 % (0.0-4.0) 12/02/17 06:15 Baso % (Auto) 3.3 % (0.0-2.0) H 12/02/17 06:15 Neut # (Auto) 4.0 K/uL (1.8-7.0) 12/02/17 06:15 Lymph # (Auto) 1.7 K/uL (1.0-4.3) 12/02/17 06:15 [place] # (Auto) 1.1 K/uL (0.0-0.8) H 12/02/17 06:15 Eos # (Auto) 0.2 K/uL (0.0-0.7) 12/02/17 06:15 Baso # (Auto) 0.2 K/uL (0.0-0.2) 12/02/17 06:15 Neutrophils % (Manual) 57 % (50-75) 12/02/17 06:15 Band Neutrophils % 2 % (0-2) 12/02/17 06:15 Lymphocytes % (Manual) 22 % (20-40) 12/02/17 06:15 Monocytes % (Manual) 12 % (0-10) H 12/02/17 06:15 Eosinophils % (Manual) 4 % (0-4) 12/02/17 06:15 Basophils % (Manual) 3 % (0-2) H 12/02/17 06:15 Platelet Estimate Normal (NORMAL) 12/02/17 06:15 Sodium 141 mmol/L (132-148) 12/02/17 06:15 Potassium 3.6 mmol/L (3.6-5.2) 12/02/17 06:15 Chloride 106 mmol/L (98-107) 12/02/17 06:15 Carbon Dioxide 23 mmol/L (22-30) 12/02/17 06:15 Anion Gap 15 (10-20) 12/02/17 06:15 BUN 3 mg/dL (9-20) L 12/02/17 06:15 Creatinine 0.6 mg/dL (0.8-1.5) L 12/02/17 06:15 Est GFR ( Amer) > 60 12/02/17 06:15 Est GFR (Non-Af Amer) > 60 12/02/17 06:15 Random Glucose 115 mg/dL (75-110) H 12/02/17 06:15 Calcium 9.5 mg/dl (8.6-10.4) 12/02/17 06:15 Phosphorus 4.6 mg/dL (2.5-4.5) H 11/30/17 06:16 Magnesium 2.2 mg/dL (1.6-2.3) 11/30/17 06:16 Total Bilirubin 0.7 mg/dL (0.2-1.3) 12/02/17 06:15 AST 142 U/L (17-59) H D 12/02/17 06:15 ALT 202 U/L (21-72) H 12/02/17 06:15 Alkaline Phosphatase 88 U/L (38-126) 12/02/17 06:15 Total Protein 6.7 g/dL (6.3-8.3) 12/02/17 06:15 Albumin 3.9 g/dL (3.5-5.0) 12/02/17 06:15 Globulin 2.8 gm/dL (2.2-3.9) 12/02/17 06:15 Albumin/Globulin Ratio 1.4 (1.0-2.1) 12/02/17 06:15 Amylase 174 U/L (30-110) H D 12/01/17 07:11 Lipase 1546 U/L (23-300) H 12/02/17 06:15 Urine Color Yellow (YELLOW) 11/29/17 04:45 Urine Clarity Clear (Clear) 11/29/17 04:45 Urine pH 6.0 (5.0-8.0) 11/29/17 04:45 Ur Specific [place] 1.008 (1.003-1.030) 11/29/17 04:45 Urine Protein Negative mg/dL (NEGATIVE) 11/29/17 04:45 Urine Glucose (UA) Normal mg/dL (Normal) 11/29/17 04:45 Urine Ketones Negative mg/dL (NEGATIVE) 11/29/17 04:45 Urine Blood Negative (NEGATIVE) 11/29/17 04:45 Urine Nitrate Negative (NEGATIVE) 11/29/17 04:45 Urine Bilirubin Negative (NEGATIVE) 11/29/17 04:45 Urine Urobilinogen Normal mg/dL (0.2-1.0) 11/29/17 04:45 Ur Leukocyte Esterase Neg Laila/uL (Negative) 11/29/17 04:45 Urine WBC (Auto) 3 /hpf (0-5) 11/29/17 04:45 Urine RBC (Auto) < 1 /hpf (0-3) 11/29/17 04:45 Ur Squamous Epith Cells < 1 /hpf (0-5) 11/29/17 04:45 Hyaline Casts 3-5 /lpf (0-2) H 11/29/17 04:45 Urine Opiates Screen Negative (NEGATIVE) 11/29/17 04:45 Urine Methadone Screen Negative (NEGATIVE) 11/29/17 04:45 Ur Barbiturates Screen Negative (NEGATIVE) 11/29/17 04:45 Ur Phencyclidine Scrn Negative (NEGATIVE) 11/29/17 04:45 Ur Amphetamines Screen Negative (NEGATIVE) 11/29/17 04:45 U Benzodiazepines Scrn Positive (NEGATIVE) 11/29/17 04:45 U Oth Cocaine Metabols Negative (NEGATIVE) 11/29/17 04:45 U Cannabinoids Screen Negative (NEGATIVE) 11/29/17 04:45 - Hospital Course Hospital Course: admitted with pancearatits, seizure dt's and he was placed npo and gi eval, he did well and lipse went down and he is for discharge Discharge Exam - Head Exam Head Exam: ATRAUMATIC, NORMAL INSPECTION - Eye Exam Eye Exam: EOMI, Normal appearance, PERRL, Scleral icterus Pupil Exam: NORMAL ACCOMODATION - ENT Exam ENT Exam: Normal Exam, TM's Normal Bilaterally - Neck Exam Neck exam: Normal Inspection - Respiratory Exam Respiratory Exam: NORMAL BREATHING PATTERN - Cardiovascular Exam Cardiovascular Exam: REGULAR RHYTHM, +S1, +S2 - GI/Abdominal Exam GI & Abdominal Exam: Normal Bowel Sounds - Rectal Exam Rectal Exam: NORMAL INSPECTION - Exam Exam: NORMAL INSPECTION - Neurological Exam Neurological exam: Alert, CN II-XII Intact, Normal Gait, Oriented x3, Reflexes Normal - Psychiatric Exam Psychiatric exam: Flat Affect - Skin Skin Exam: Intact Discharge Plan - Discharge Medications Prescriptions: Folic Acid 1 mg PO DAILY 30 Days tab Multivitamin [Multiple Vitamins] 1 each PO DAILY 30 Days tablet Thiamine [Vitamin B1 Tab] 50 mg PO DAILY 30 Days tab - Follow Up Plan Condition: GUARDED Disposition: HOME/ ROUTINE Instructions: Smoking: Not Just Harmful to Your Lungs and Heart, Seizures, Adult (DC), Quitting Smoking, Folic Acid, Thiamine, Pancreatitis (DC) Additional Instructions: FOLLOW UP WITH DR GRAY IN HIS OFFICE 1-2 WEEK ---CALL FOR APPOINTMENT NEW PRESCRIPTION GIVEN THIAMINE MUTLTI VITAMIN FOLIC ACID ACITIVITY TOLERATED CALL DR GRAY OR GO TO THE EMERGENCY ROOM IF SYMPTOMS RETURN OR WORSENING Referrals: Darian Petit [Staff Provider] - Polo Gray MD [Staff Provider] - Ryne Haque MD [Staff Provider] -
--- NOTE | 2017-12-03 05:50 | CON ---
DATE: 11/30/[address] Darian Andrade to Dr. Polo Gray. REASON FOR CONSULTATION: I was called for GI consultation by his admitting MD. The patient is seen and fully examined on 11/30/2017 as requested by the admitting medical staff. The entire chart is reviewed including, but not limited to the most recent lab and radiology study results, current and the previous medication list, current and the previous medical events. Case was discussed with the staff at length on 11/30/2017 pre and post my consultation and physical examination. HISTORY OF PRESENT ILLNESS: This is a 27-year-old male with known history of recurrent pancreatitis in the past, who was admitted to the hospital through the emergency room due to an episode of seizure prior to his admission. It has to be mentioned that the patient recently was diagnosed with recurrent episodes of pancreatitis as well as seizure disorder, believed to be secondary to excessive alcohol intake, again. No reported active bleeding, chest pain, palpitation, or significant shortness of breath at the time of his admission. PAST MEDICAL HISTORY: Includin. Alcohol-induced recurrent pancreatitis. 2. Alcohol-induced seizure disorder, most likely . 3. Alcoholism. 4. Known history of substance abuse. 5. Known history of peptic ulcer disease. FAMILY HISTORY: Unrelated to specific GI disorder. SOCIAL HISTORY: Positive for alcohol intake, substance abuse, cigarette smoking. MEDICATIONS: Post admission medication lists were reviewed. ALLERGIES TO MEDICATIONS: UNCLEAR. LABORATORY DATA: After being admitted to the hospital, the patient was found to have white blood cells of 11.3 with normal hemoglobin and hematocrit and platelet count with blood glucose level 133. Alcohol level was excessively elevated over 2000 at the time of the admission. PHYSICAL EXAMINATION: GENERAL: A 27-year-old male appears to be awake and alert. VITAL SIGNS: Afebrile with pulse of 74, respiratory rate 20 to 22, blood pressure of 128/74. HEENT: Showed pale, dry, mildly mucus oral mucoid membrane. Slightly icteric sclerae bilaterally. LYMPH NODE: No lymphadenitis or lymphadenopathy. NEUROLOGIC: No reported new neurological deficits, sensory, or motor. LUNGS: Clear. Breathing sounds are present bilaterally. HEART: Positive S1 and S2. ABDOMEN: Soft with mild generalized tenderness. No mass or organomegaly. No rebound tenderness or guarding. EXTREMITIES: Without significant clubbing, cyanosis, or edema. However, the patient has very fine both hands tremor. IMPRESSION: 1. Alcoholism. 2. Alcohol-induced acute pancreatitis on top of his chronic pancreatitis. 3. Peak exacerbation of peptic ulcer disease. 4. Known history of substance abuse. 5. Known history of seizure disorder, most likely alcohol induced. SUGGESTIONS: 1. Agree with your plan. 2. Abdominal and pelvic ultrasound. 3. Keep n.p.o. until serum lipase, amylase level, near normal. 4. Proton pump inhibitors IV. Reglan IV. Rehydration. 5. There is subsequent drop of hemoglobin and hematocrit, and endoscopic evaluation of the upper gastrointestinal tract mainly to be considered as well as colonoscopy. 6. Further recommendation to follow, and the patient will need thiamine as well as folic acid. Thank you for letting me participate in your patient's case management. Darian Andrade MD
== END 2017-12-02 14:22 | disposition home or self-care (01) | DRG 532 ==
LOC: SUPCPDRO 00:39 → C.ER 00:39 → C.9E 03:58 → C.9I 06:30 → C.5S 11-30 18:08
PROVIDERS: ADMIT Internal Medicine; ATTEND Internal Medicine
PROC: HZ2ZZZZ Detoxification Services for Substance Abuse Treatment (ICD-10-PCS; principal; 2017-11-29)
PROC: HZ52ZZZ Individual Psychotherapy for Substance Abuse Treatment, Cognitive-Behavioral (ICD-10-PCS; 2017-11-29)
PROC: HZ59ZZZ Individual Psychotherapy for Substance Abuse Treatment, Supportive (ICD-10-PCS; 2017-11-29)
PROC: HZ56ZZZ Individual Psychotherapy for Substance Abuse Treatment, Psychoeducation (ICD-10-PCS; 2017-11-29)
PROC: HZ42ZZZ Group Counseling for Substance Abuse Treatment, Cognitive-Behavioral (ICD-10-PCS; 2017-11-29)
PROC: HZ46ZZZ Group Counseling for Substance Abuse Treatment, Psychoeducation (ICD-10-PCS; 2017-11-29)
PROC: GZHZZZZ Group Psychotherapy (ICD-10-PCS; 2017-11-29)
PROC: GZ58ZZZ Individual Psychotherapy, Cognitive-Behavioral (ICD-10-PCS; 2017-11-29)
PROC: GZ56ZZZ Individual Psychotherapy, Supportive (ICD-10-PCS; 2017-11-29)
DX: G40.509 Epileptic seizures related to external causes, not intractable, without status epilepticus (principal); K85.20 Alcohol induced acute pancreatitis without necrosis or infection; E87.6 Hypokalemia; F10.230 Alcohol dependence with withdrawal, uncomplicated; F11.10 Opioid abuse, uncomplicated; F13.10 Sedative, hypnotic or anxiolytic abuse, uncomplicated; Y90.9 Presence of alcohol in blood, level not specified; F17.210 Nicotine dependence, cigarettes, uncomplicated; F41.9 Anxiety disorder, unspecified; J45.909 Unspecified asthma, uncomplicated

== ENCOUNTER 2018-08-11 15:03 | Inpatient (IN) | payer MEDICAID ==
[2018-08-11 15:03] VITALS: BMI 23.7
[~2018-08-11 15:03] MED LIST: Multivitamin (MVI) 10 ML, Thiamine 100 MG, Folic Acid 1 MG in Sodium Chloride 0.9% 1,00... IV ONE
[2018-08-11 16:30] LABS: BARBITURATES, UR NEGATIVE (NEGATIVE); BENZODIAZEPINES, UR POSITIVE (NEGATIVE); OPIATES, UR NEGATIVE (NEGATIVE); PHENCYCLIDINE, UR NEGATIVE (NEGATIVE)
[2018-08-11] MEDS ORDERED: Iohexol 240 (50 ml) PO STA (16:48)
[2018-08-11] MEDS ORDERED: Iohexol 240 (50 ml) ONE (17:02)
[2018-08-11 17:07] LABS: URINE BILIRUBIN NEGATIVE (NEGATIVE); URINE BLOOD NEGATIVE (NEGATIVE); URINE CLARITY Clear (Clear); URINE COLOR Amber (YELLOW); URINE GLUCOSE (UA) NORMAL (Normal); URINE LEUKOCYTE ESTERASE NEG Leu/uL (Negative); URINE PROTEIN NEGATIVE (NEGATIVE)
[2018-08-11 17:10] LABS: ALB/GLOB RATIO 1.5 (1.0-2.1); ALBUMIN 4.8 g/dL (3.5-5.0); ALT/SGPT 344 U/L (21-72); AST/SGOT 293 U/L (17-59); BLOOD UREA NITROGEN 5 mg/dL (9-20); CALCIUM 9.3 mg/dl (8.6-10.4); GFR NON-AFRICAN AMERICAN > 60
--- NOTE | 2018-08-11 17:13 | C.PDOC ---
History Of Present Illness 28 y/o male with hx etoh, xanax, and cocaine abuse presents to ED for detox. pt also c/o left sided abdominal pain x 2 days with occasional vomiting. pt had pancreatitis 3 months ago and recent gastritis and pain feels worse today. last alcohol around 6 pm yesterday, last cocaine this morning. no fever or chills. Time Seen by Provider: 08/11/18 16:03 Chief Complaint (Nursing): Substance Abuse History Per: Patient History/Exam Limitations: no limitations Onset/Duration Of Symptoms: Days (2) Current Symptoms Are (Timing): Worse Suicide/Self Injury Attempted (Context): None Modifying Factor(s): Alcohol Associated Symptoms: denies: Anger, Suicidal Plan Additional History Per: Prior Records Past Medical History Reviewed: Historical Data, Nursing Documentation, Vital Signs Vital Signs: Last Vital Signs Temp 98.1 F 08/11/18 15:16 Pulse 104 H 08/11/18 15:16 Resp 18 08/11/18 15:16 BP 160/93 H 08/11/18 15:16 Pulse Ox 100 08/11/18 15:16 Primary Care Provider: Non [facility] Provider, - Medical History PMH: Anxiety, Gastritis, Pancreatitis, Seizures (4 yr ago r/t benzo withdrawal) Denies: Depression, Diabetes, Hepatitis, HIV, HTN, Chronic Kidney Disease, Sexually Transmitted Disease Surgical History: Tonsillectomy - [facility] DETOXIFICATION SERVICES FOR SUBSTANCE ABUSE TREATMENT (11/29/17) GROUP SLICING MACHINE OPERATOR/TENDER FOR SUBSTANCE ABUSE TREATMENT, PSYCHOEDUCATION (11/29/17) GROUP SLICING MACHINE OPERATOR/TENDER FOR SUBSTANCE ABUSE, COGNITIVE BEHAVIORAL (11/29/17) GROUP PSYCHOTHERAPY (11/29/17) INDIV SLICING MACHINE OPERATOR/TENDER FOR SUBSTANCE ABUSE TREATMENT, PSYCHOEDUCATION (04/30/16) INDIV SLICING MACHINE OPERATOR/TENDER FOR SUBSTANCE ABUSE, COGNITIVE BEHAVIORAL (04/30/16) INDIV PSYCHOTHERAPY FOR SUBSTANCE ABUSE TREATMENT, SUPPORT (11/29/17) INDIV PSYCHOTHERAPY FOR SUBSTANCE ABUSE, COGNITIV BEHAVIORAL (11/29/17) INDIV PSYCHOTHERAPY FOR SUBSTANCE ABUSE, PSYCHOEDUCATION (11/29/17) INDIVIDUAL PSYCHOTHERAPY, COGNITIVE-BEHAVIORAL (11/29/17) INDIVIDUAL PSYCHOTHERAPY, SUPPORTIVE (11/29/17) MIDDLE EAR INCISION (12/12/00) MYRINGOPLASTY (12/12/00) REMOVAL OF FB NOS (04/21/01) Family History: States: Unknown Family Hx - Social History Hx Tobacco Use: Yes Hx Alcohol Use: Yes Hx Substance Use: Yes (crack, cocaine, xanax) - Immunization History Hx Tetanus Toxoid Vaccination: Yes Hx Influenza Vaccination: Yes Hx Pneumococcal Vaccination: Yes Review Of Systems Constitutional: Negative for: Fever, Chills ENT: Negative for: Ear Pain Cardiovascular: Negative for: Chest Pain Respiratory: Negative for: Cough Gastrointestinal: Positive for: Nausea, Vomiting, Abdominal Pain Skin: Positive for: Bruising. Negative for: Rash Neurological: Negative for: Weakness, Numbness Physical Exam - Physical Exam Appears: Non-toxic, Unkempt Skin: Warm, Dry, Ecchymosis (scattered on arms), Other Head: Atraumatic, Normacephalic Eye(s): bilateral: Normal Inspection Nose: No Discharge Oral Mucosa: Dry Tongue: Other (tremulous) Neck: Supple Chest: Symmetrical, No Deformity, No Tenderness Cardiovascular: Rhythm Regular, Other (tachycardic) Respiratory: No Decreased Breath Sounds, No Rales, No Rhonchi, No Wheezing Gastrointestinal/Abdominal: Bowel Sounds, Soft, Tenderness (epigastric and left upper quadrant tender), No Distention, No Guarding, No Rebound Back: No CVA Tenderness Neurological/Psych: Oriented x3, Normal Speech, Normal Cognition ED Course And Treatment - Laboratory Results Result Diagrams: 08/11/18 17:24 08/11/18 16:50 O2 Sat by Pulse Oximetry: 100 Medical Decision Making Medical Decision Making: pt with substance abuse and abdominal pain. pt in acute wd, will admit to [facility] for pancreatitis and etoh wd, discussed with Dr Carmona. will get ct scan abdomen. Disposition Discussed With : Eva Carmona Doctor Will See Patient In The: Hospital - Disposition Disposition: HOSPITALIZED Disposition Time: 18:15 Condition: STABLE Forms: [facility] ([place]) - Clinical Impression Clinical Impression: Acute pancreatitis, Alcohol withdrawal
[2018-08-11 17:26] LABS: BARBITURATES, UR NEGATIVE (NEGATIVE); OPIATES, UR NEGATIVE (NEGATIVE); PHENCYCLIDINE, UR NEGATIVE (NEGATIVE)
[2018-08-11 17:27] LABS: BASO # 0.1 K/uL (0.0-0.2); BASO % 1.2 % (0.0-2.0); EOS # 0.2 K/uL (0.0-0.7); EOS % 2.3 % (0.0-4.0); HEMOGLOBIN 15.2 g/dL (12.0-18.0); LYMPH # 1.6 K/uL (1.0-4.3); LYMPH % 23.3 % (20.0-40.0); MEAN CORPUSCULAR HEMOGLOBIN 34.3 pg (27.0-31.0); MEAN CORPUSCULAR HGB CONC 34.5 g/dL (33.0-37.0); MEAN PLATELET VOLUME 8.7 fL (7.2-11.7); MONO # 0.8 K/uL (0.0-0.8); MONO % 11.1 % (0.0-10.0); NEUT # 4.3 K/uL (1.8-7.0); NEUT % 62.1 % (50.0-75.0); NRBC % 0.1 % (0.0-2.0); RBC 4.43 Mil/uL (4.40-5.90); RED CELL DISTRIBUTION WIDTH 14.6 % (11.5-14.5)
[2018-08-11 17:28] LABS: MEAN CELL VOLUME 99.7 fL (80.0-94.0)
[2018-08-11 17:36] LABS: BENZODIAZEPINES, UR POSITIVE (NEGATIVE)
[2018-08-11] MEDS ORDERED: Iodixanol 320 MG/ML 100 ML BOTTLE IV ONE (17:40)
[2018-08-11] MEDS ORDERED: Multivitamin (MVI) 10 ML, Thiamine 100 MG, Folic Acid 1 MG in Sodium Chloride 0.9% 1,00... IV ONE (18:16)
[2018-08-11] MEDS ORDERED: Erythromycin 0.5% Ophth Oint 1 APPLIC/3.5 G OD STA (18:29)
--- NOTE | 2018-08-11 19:09 | CT ---
Date of service: 08/11/2018 PROCEDURE: CT Abdomen and Pelvis with contrast HISTORY: abdominal pain pancreatitis COMPARISON: Comparison is made to the previous study dated 11/21/2017 previous ultrasound dated 11/29/2017. TECHNIQUE: Contrast dose: 100 mL of Visipaque 320 intravenously. Axial and reformatted coronal and sagittal CT images of the abdomen and pelvis were obtained after IV and oral contrast administration. Radiation dose: Total exam DLP = 848.58 mGy-cm. This CT exam was performed using one or more of the following dose reduction techniques: Automated exposure control, adjustment of the mA and/or kV according to patient size, and/or use of iterative reconstruction technique. FINDINGS: LOWER THORAX: Unremarkable. LIVER: Moderate hepatomegaly and moderate to severe diffuse attenuation of the liver is noted suggestive of advanced hepatic steatosis. No evidence of intrahepatic biliary ductal dilatation. The portal vein is patent. GALLBLADDER AND BILE DUCTS: No evidence of acute cholecystitis. PANCREAS: Inflammatory changes and trace amount of fluid surrounding the pancreas more prominent around the pancreatic head suggestive of acute pancreatitis. The main pancreatic duct is not dilated. No evidence of discrete mass in the pancreas. SPLEEN: Unremarkable. ADRENALS: Unremarkable. No mass. KIDNEYS AND URETERS: Unremarkable. No hydronephrosis. No solid mass. VASCULATURE: Unremarkable. No aortic aneurysm. No aortic atherosclerotic calcification or mural plaque present. BOWEL: Unremarkable. No obstruction. No gross mural thickening. APPENDIX: No evidence of appendicitis. PERITONEUM: Small amount of free fluid in the upper abdomen secondary to pancreatitis. No evidence of free air. LYMPH NODES: Mildly enlarged periaortic lymph nodes are again noted. BLADDER: Unremarkable. REPRODUCTIVE: Unremarkable. BONES: No acute fracture. OTHER FINDINGS: None. IMPRESSION: Findings are suggestive of acute pancreatitis. Small amount of free fluid in the abdomen and pelvis noted. Diffuse moderate to severe low-attenuation of the liver suggestive of advanced hepatic steatosis. [id number] hepatomegaly.
--- NOTE | 2018-08-12 09:08 | CP.PCM.CON ---
<Shaan Abel - Last Filed: 08/12/18 13:13> History of Present Illness - History of Present Illness History of Present Illness: PGY-4 GI Fellow Consult Note 28-year-old white male with a past medical history of alcohol abuse (complicated by pancreatitis, seizure disorder), polysubstance abuse (heroin, cocaine, opioids, alcohol), Anxiety, gastritis presenting with complaint of the abdominal pain. He reports over the last few days he has had progressively worse left- sided, sharp, not radiating abd pain associated with nausea but denied and emesis. He continues to abuse alcohol with last drink in the evening at 08/10/18. He also continues to smoke tobacco and use cocaine with the last use being on 08/11/18. He states his bowel movements have been somewhat loose recently, but his last bowel movement was at least 48 hours ago. Denies any fevers/chills, weight loss, dysphasia, melena nor hematochezia. No prior endoscopic evaluations. 12 point ROS negative other than stated above Medical history: see above Surgical history: adenotonsillectomy, eustachian tube surgery Medications: reviewed and chart Family history: denied any G.I. history Social history: polysubstance abuse as detailed above, 4-5 pints of alcohol daily Allergies: penicillin Past Patient History - Infectious Disease Hx of Infectious Diseases: None - Tetanus Immunizations Tetanus Immunization: Up to Date - Past Medical History & Family History Past Medical History?: Yes - Past Social History Smoking Status: Never Smoked - CARDIAC Hx Hypertension: No - PULMONARY Hx Tuberculosis: No - NEUROLOGICAL Hx Seizures: Yes (4 yr ago r/t benzo withdrawal) - HEENT Hx HEENT Problems: Yes Hx Deafness: Yes (Left ear) - RENAL Hx Chronic Kidney Disease: No - ENDOCRINE/METABOLIC Hx Endocrine Disorders: No - HEMATOLOGICAL/ONCOLOGICAL Hx Human Immunodeficiency Virus (HIV): No - INTEGUMENTARY Hx Dermatological Problems: No - MUSCULOSKELETAL/RHEUMATOLOGICAL Hx Falls: No - GASTROINTESTINAL Hx Gastritis: Yes Hx Pancreatitis: Yes - GENITOURINARY/GYNECOLOGICAL Hx Sexually Transmitted Disorders: No - PSYCHIATRIC Hx Anxiety: Yes Hx Depression: No Hx Substance Use: Yes (crack, cocaine, xanax) - SURGICAL HISTORY Hx Tonsillectomy: Yes - ANESTHESIA Hx Anesthesia: Yes Hx Anesthesia Reactions: No Hx Malignant Hyperthermia: No Meds Allergies/Adverse Reactions: Allergies Allergy/AdvReac Type Severity Reaction Status Date / Time Penicillins Allergy RASH Verified 08/01/18 20:50 - Medications Medications: Current Medications Multivitamins/Vitamin C 10 ml/Thiamine HCl 100 mg/ Folic Acid 1 mg/ Sodium Chloride 1,011.2 mls @ 100 mls/hr IV .Q10H7M ONE Stop: 08/12/18 20:06 Lorazepam (Ativan) 0.5 mg IVP Q6H PRN PRN Reason: Symptoms of alcohol withdrawl Last Admin: 08/12/18 07:32 Dose: 0.5 mg Pantoprazole Sodium (Protonix Inj) 40 mg IVP DAILY CITLALI Physical Exam - Constitutional Appears: Well, No Acute Distress - Head Exam Head Exam: ATRAUMATIC, NORMAL INSPECTION - Eye Exam Eye Exam: EOMI. absent: Scleral icterus - ENT Exam ENT Exam: Mucous Membranes Dry. absent: Mucous Membranes Moist - Respiratory Exam Respiratory Exam: NORMAL BREATHING PATTERN. absent: Accessory Muscle Use - Cardiovascular Exam Cardiovascular Exam: REGULAR RHYTHM, RRR - GI/Abdominal Exam GI & Abdominal Exam: Diminished Bowel Sounds, Soft, Tenderness (mildly ttp in L half of abdomen w/o guarding). absent: Bruit, Distended, Firm, Guarding, Hernia, Organomegaly, Pulsatile Mass, Rigid - Rectal Exam Rectal Exam: Deferred - Extremities Exam Extremities exam: Positive for: normal inspection. Negative for: pedal edema - Neurological Exam Neurological exam: Alert, CN II-XII Intact - Psychiatric Exam Psychiatric exam: Normal Affect, Normal Mood - Skin Skin Exam: Normal Color, Warm Results - Vital Signs Recent Vital Signs: Last Vital Signs Temp 98.2 F 08/12/18 07:00 Pulse 93 H 08/12/18 08:00 Resp 20 08/12/18 07:00 BP 132/80 08/12/18 07:00 Pulse Ox 96 08/12/18 07:00 - Labs Result Diagrams: 08/11/18 17:24 08/11/18 16:50 Labs: Laboratory Results - last 24 hr 08/11/18 08/11/18 08/11/18 16:10 16:50 16:50 WBC RBC Hgb Hct MCV MCH MCHC RDW Plt Count MPV Neut % (Auto) Lymph % (Auto) Moore % (Auto) Eos % (Auto) Baso % (Auto) Neut # (Auto) Lymph # (Auto) Moore # (Auto) Eos # (Auto) Baso # (Auto) Sodium 136 Potassium 5.0 Chloride 99 Carbon Dioxide 25 Anion Gap 17 BUN 5 L Creatinine 0.5 L Est GFR ( Amer) > 60 Est GFR (Non-Af Amer) > 60 Random Glucose 86 D Calcium 9.3 Phosphorus 4.2 Magnesium 1.7 Total Bilirubin 1.9 H AST 293 H D ALT 344 H D Alkaline Phosphatase 89 Total Protein 8.0 Albumin 4.8 Globulin 3.2 Albumin/Globulin Ratio 1.5 Lipase Urine Color Roxy Urine Clarity Clear Urine pH 6.0 Ur Specific [place] 1.020 Urine Protein Negative Urine Glucose (UA) Normal Urine Ketones Negative Urine Blood Negative Urine Nitrate Negative Urine Bilirubin Negative Urine Urobilinogen 2.0 Ur Leukocyte Esterase Neg Urine WBC (Auto) 2 Urine RBC (Auto) 1 Urine Opiates Screen Negative Urine Methadone Screen Negative Ur Barbiturates Screen Negative Ur Phencyclidine Scrn Negative Ur Amphetamines Screen Negative U Benzodiazepines Scrn Positive U Oth Cocaine Metabols Positive H U Cannabinoids Screen Negative Alcohol, Quantitative 48 H 08/11/18 08/11/18 08/11/18 16:50 17:24 17:24 WBC 7.0 RBC 4.43 Hgb 15.2 Hct 44.2 MCV 99.7 H D MCH 34.3 H MCHC 34.5 RDW 14.6 H Plt Count 231 MPV 8.7 Neut % (Auto) 62.1 Lymph % (Auto) 23.3 Moore % (Auto) 11.1 H Eos % (Auto) 2.3 Baso % (Auto) 1.2 Neut # (Auto) 4.3 Lymph # (Auto) 1.6 Moore # (Auto) 0.8 Eos # (Auto) 0.2 Baso # (Auto) 0.1 Sodium Potassium Chloride Carbon Dioxide Anion Gap BUN Creatinine Est GFR ( Amer) Est GFR (Non-Af Amer) Random Glucose Calcium Phosphorus Magnesium Total Bilirubin AST ALT Alkaline Phosphatase Total Protein Albumin Globulin Albumin/Globulin Ratio Lipase 2450 H Urine Color Urine Clarity Urine pH Ur Specific [place] Urine Protein Urine Glucose (UA) Urine Ketones Urine Blood Urine Nitrate Urine Bilirubin Urine Urobilinogen Ur Leukocyte Esterase Urine WBC (Auto) Urine RBC (Auto) Urine Opiates Screen Negative Urine Methadone Screen Negative Ur Barbiturates Screen Negative Ur Phencyclidine Scrn Negative Ur Amphetamines Screen Negative U Benzodiazepines Scrn Positive U Oth Cocaine Metabols Positive H U Cannabinoids Screen Negative Alcohol, Quantitative Assessment & Plan - Assessment and Plan (Free Text) Assessment: 28-year-old white male with a past medical history of alcohol abuse (complicated by pancreatitis, seizure disorder), polysubstance abuse (heroin, cocaine, opioids, alcohol), Anxiety, gastritis presenting with complaint of the abdominal pain. # Abd Pain: Due to acute pancreatitis. 3/3 criteria. Uncomplicated. Trigger related to EtOH and ongoing tob abuse. # Hepatitis: Likely EtOH induced. Viral Hep recently negative. # Polysubstance abuse # Endo Hx: No prior EGD/CSPY Plan: - Pain control with tramadol - Adv diet to low fat - Encourage good PO fluid intake - Agree with CIWA and banana bag - Encourage EtOH cessation and polysubstance abuse cessation - No plans for endoscopic eval at this time Pt seen and examined with Dr. Braswell; please see attestation for further recs/changes. <Mary Braswell - Last Filed: 08/12/18 13:26> Meds - Medications Medications: Current Medications Multivitamins/Vitamin C 10 ml/Thiamine HCl 100 mg/ Folic Acid 1 mg/ Sodium Chloride 1,011.2 mls @ 100 mls/hr IV .Q10H7M ONE Stop: 08/12/18 20:06 Last Admin: 08/12/18 09:27 Dose: 100 mls/hr Lorazepam (Ativan) 0.5 mg IVP Q6H PRN PRN Reason: Symptoms of alcohol withdrawl Last Admin: 08/12/18 07:32 Dose: 0.5 mg Nicotine (Nicoderm Cq) 1 patch TD DAILY CITLALI Last Admin: 08/12/18 10:20 Dose: 1 patch Pantoprazole Sodium (Protonix Inj) 40 mg IVP DAILY CITLALI Last Admin: 08/12/18 09:28 Dose: 40 mg Tramadol HCl (Ultram) 50 mg PO TID PRN PRN Reason: Pain, moderate (4-7) Results - Vital Signs Recent Vital Signs: Last Vital Signs Temp 98.2 F 08/12/18 07:00 Pulse 93 H 08/12/18 08:00 Resp 20 08/12/18 07:00 BP 132/80 08/12/18 07:00 Pulse Ox 96 08/12/18 07:00 - Labs Result Diagrams: 08/11/18 17:24 08/11/18 16:50 Labs: Laboratory Results - last 24 hr 08/11/18 08/11/18 08/11/18 16:10 16:50 16:50 WBC RBC Hgb Hct MCV MCH MCHC RDW Plt Count MPV Neut % (Auto) Lymph % (Auto) Moore % (Auto) Eos % (Auto) Baso % (Auto) Neut # (Auto) Lymph # (Auto) Moore # (Auto) Eos # (Auto) Baso # (Auto) Sodium 136 Potassium 5.0 Chloride 99 Carbon Dioxide 25 Anion Gap 17 BUN 5 L Creatinine 0.5 L Est GFR ( Amer) > 60 Est GFR (Non-Af Amer) > 60 Random Glucose 86 D Calcium 9.3 Phosphorus 4.2 Magnesium 1.7 Total Bilirubin 1.9 H AST 293 H D ALT 344 H D Alkaline Phosphatase 89 Total Protein 8.0 Albumin 4.8 Globulin 3.2 Albumin/Globulin Ratio 1.5 Lipase Urine Color Roxy Urine Clarity Clear Urine pH 6.0 Ur Specific [place] 1.020 Urine Protein Negative Urine Glucose (UA) Normal Urine Ketones Negative Urine Blood Negative Urine Nitrate Negative Urine Bilirubin Negative Urine Urobilinogen 2.0 Ur Leukocyte Esterase Neg Urine WBC (Auto) 2 Urine RBC (Auto) 1 Urine Opiates Screen Negative Urine Methadone Screen Negative Ur Barbiturates Screen Negative Ur Phencyclidine Scrn Negative Ur Amphetamines Screen Negative U Benzodiazepines Scrn Positive U Oth Cocaine Metabols Positive H U Cannabinoids Screen Negative Alcohol, Quantitative 48 H 08/11/18 08/11/18 08/11/18 16:50 17:24 17:24 WBC 7.0 RBC 4.43 Hgb 15.2 Hct 44.2 MCV 99.7 H D MCH 34.3 H MCHC 34.5 RDW 14.6 H Plt Count 231 MPV 8.7 Neut % (Auto) 62.1 Lymph % (Auto) 23.3 Moore % (Auto) 11.1 H Eos % (Auto) 2.3 Baso % (Auto) 1.2 Neut # (Auto) 4.3 Lymph # (Auto) 1.6 Moore # (Auto) 0.8 Eos # (Auto) 0.2 Baso # (Auto) 0.1 Sodium Potassium Chloride Carbon Dioxide Anion Gap BUN Creatinine Est GFR ( Amer) Est GFR (Non-Af Amer) Random Glucose Calcium Phosphorus Magnesium Total Bilirubin AST ALT Alkaline Phosphatase Total Protein Albumin Globulin Albumin/Globulin Ratio Lipase 2450 H Urine Color Urine Clarity Urine pH Ur Specific [place] Urine Protein Urine Glucose (UA) Urine Ketones Urine Blood Urine Nitrate Urine Bilirubin Urine Urobilinogen Ur Leukocyte Esterase Urine WBC (Auto) Urine RBC (Auto) Urine Opiates Screen Negative Urine Methadone Screen Negative Ur Barbiturates Screen Negative Ur Phencyclidine Scrn Negative Ur Amphetamines Screen Negative U Benzodiazepines Scrn Positive U Oth Cocaine Metabols Positive H U Cannabinoids Screen Negative Alcohol, Quantitative Attending/Attestation - Attestation I have personally seen and examined this patient.: Yes I have fully participated in the care of the patient.: Yes I have reviewed all pertinent clinical information: Yes Notes (Text): 08/12/18 13:22 I have seen and examined the pt with the GI fellow. This is a 28 yo M with PMH of polysubstance abuse with prior episode of alcoholic pancreatitis (03/2018) p/w abdominal pain found to have acute pancreatitis. Advance to low fat diet. Encourage abstinence. Fatty liver seen on imaging likely 2/2 chronic EtOH abuse. No findings of chronic pancreatitis.
[2018-08-12] MEDS ORDERED: Multivitamin (MVI) 10 ML, Thiamine 100 MG, Folic Acid 1 MG in Sodium Chloride 0.9% 1,00... IV ONE (10:00)
--- NOTE | 2018-08-12 19:49 | PCM.PSYCH ---
Initial Psychiatric Evaluation - Initial Psychiatric Evaluation Type of Admission: Voluntary Legal Status: Capacity Chief Complaint (in patient's own words): "I want detox from alcohol" History of Present Illness and Precipitating Events: Patient is a 28 yo White Male, single, no child, who currently lives with his aunt and uncle and is unemployed. Patient presented to the ED for alcohol detox and was positive for pancreatitis, and was transferred to the medical floor. Patient reports drinking about 4-8 pints of vodka daily since he was 13 years old. He was previously detoxed at [facility] about 2 years ago. Patient also report attending [facility] and a rehab in [place] in the past. He reports using multiple drug use including cocaine, crack, prescription Xanax and alcohol for many years, but he is here for alcohol. He has been on Subutex before. He reports tking 4-8 mg of Xanax daily, and using Cocaine and crack a few weeks ago. Chart review indicated that he also has a history or IV heroin use and marijuana. He smokes cigarette 1.5 ppd. He report significant withdrawal symptoms, and seizures, last time he had a seizure was on Tuesday, he denies history of DTs. His utox came positive for cocaine and benzos, BAL 48. He denies any SI/HI at this time, denies any perceptual disturbances, including auditory or visual hallucinations. Past psych hx: He was in detox 6x and rehab 2x, He reports anxiety but denies other sxs. Family psych and LILIANE hx: Denies Medical hx: Denies Current Medications: Active Medications Generic Name Dose Route Start Last Admin Trade Name Lawanda PRN Reason Stop Dose Admin Multivitamins/Vitamin C 10 ml/ 1,011.2 mls @ 100 mls/hr 08/12/18 10:00 08/12/18 09:27 Thiamine HCl 100 mg/ Folic IV 08/12/18 20:06 100 mls/hr Acid 1 mg/ Sodium Chloride .Q10H7M ONE Administration Lorazepam 1 mg 08/12/18 18:13 Ativan IVP Q6H PRN Symptoms of alcohol withdrawl Nicotine 1 patch 08/12/18 10:15 08/12/18 10:20 Nicoderm Cq TD 1 patch DAILY CITLALI Administration Pantoprazole Sodium 40 mg 08/12/18 10:00 08/12/18 09:28 Protonix Inj IVP 40 mg DAILY CITLALI Administration Tramadol HCl 50 mg 08/12/18 10:22 08/12/18 14:08 Ultram PO 50 mg TID PRN Administration Pain, moderate (4-7) Past Psychiatric History - Past Psychiatric History Previous Treatment History: Inpatient Pertinent Medical Hx (Current Medical&Sleep Prob, Allergies): Allergies Allergy/AdvReac Type Severity Reaction Status Date / Time Penicillins Allergy RASH Verified 08/01/18 20:50 No Known Home Med 08/11/18 Review of Systems - Review of Systems Systems not reviewed;Unavailable: Acuity of Condition - Psychiatric Psychiatric: As Per HPI, Abnormal Sleep Pattern, Anxiety, Change in Appetite Mental Status Examination - Personal Presentation Personal Presentation: Looks stated age - Affect Affect: Constricted, Depressed - Motor Activity Motor Activity: Calm - Reliability in Providing Information Reliability in Providing Information: Fair - Speech Speech: Relevant, Coherent - Mood Mood: Depressed, Anxious - Formal Thought Process Formal Thought Process: No Impairment - Obsessions/Compulsions Obsessions: None Compulsions: None - Cognitive Functions Orientation: Person, Place, Situation, Time Sensorium: Alert Estimate of Intelligence: Average Judgement: Imparied, as evidence by: Poor judgement - Risk Risk: Seizure, Withdrawal - Strength & Assets Inventory Strength & Assets Inventory: Family support DSM 5 DX - DSM 5 DSM 5 Diagnosis: Alcohol withdrawal Alcohol use disorder, Severe Cocaine use disorder, severe Anxyolitic use disorder, severe - Recommended/Plan of Treatment Treatment Recommendations and Plan of Treatment: Taper with Ativan Taper As needed medications All risks, benefits and alternatives of the meds discussed, and the pt agreed and understood. Attend groups and activities Supportive therapy and psychoeducation [place] for abstinence CBT for relapse prevention Encourage MAT Refer to rehab or IOP, and self-help groups Teach healthy lifestyle methods, i.e. diet, exercise, meditation Smoking cessation with [place] Nicotine patch if needed 32 min
--- NOTE | 2018-08-13 10:14 | CP.PCM.PN ---
<Shaan Abel - Last Filed: 08/13/18 12:47> Subjective - Date & Time of Evaluation Date of Evaluation: 08/13/18 Time of Evaluation: 09:30 - Subjective Subjective: PGY-4 GI Fellow Prog Note Pt in bed when seen this AM. States abd pain continues to improve and tolerating diet w/p problems. No BM yet but he attributes that to just starting solid food yesterday. No f/c, n/v. 5 point ROS negative other than stated above Objective - Vital Signs/Intake and Output Vital Signs (last 24 hours): Temp Pulse Resp BP Pulse Ox 98.1 F 76 20 129/76 95 08/12/18 23:30 08/13/18 00:04 08/12/18 23:30 08/12/18 23:30 08/12/18 23:30 Intake and Output: 08/13/18 08/13/18 06:59 18:59 Intake Total 1100 Output Total 300 Balance 800 - Medications Medications: Current Medications Lorazepam (Ativan) 1 mg IVP Q6H PRN PRN Reason: Symptoms of alcohol withdrawl Last Admin: 08/13/18 08:04 Dose: 1 mg Nicotine (Nicoderm Cq) 1 patch TD DAILY CITLALI Last Admin: 08/13/18 10:00 Dose: 1 patch Pantoprazole Sodium (Protonix Inj) 40 mg IVP DAILY CITLALI Last Admin: 08/13/18 10:00 Dose: 40 mg Tramadol HCl (Ultram) 50 mg PO TID PRN PRN Reason: Pain, moderate (4-7) Last Admin: 08/12/18 20:42 Dose: 50 mg - Labs Labs: 08/11/18 17:24 08/11/18 16:50 - Constitutional Appears: Well, No Acute Distress - Eye Exam Eye Exam: EOMI. absent: Scleral icterus - ENT Exam ENT Exam: Mucous Membranes Moist. absent: Mucous Membranes Dry - Respiratory Exam Respiratory Exam: NORMAL BREATHING PATTERN. absent: Accessory Muscle Use - GI/Abdominal Exam GI & Abdominal Exam: Soft, Normal Bowel Sounds. absent: Bruit, Distended, Firm, Guarding, Rigid, Tenderness, Mass, Organomegaly Assessment and Plan - Assessment and Plan (Free Text) Assessment: 28-year-old white male with a past medical history of alcohol abuse (complicated by pancreatitis, seizure disorder), polysubstance abuse (heroin, cocaine, opioid s, alcohol), Anxiety, gastritis presenting with complaint of the abdominal pain. # Abd Pain: Due to acute pancreatitis. 3/3 criteria. Uncomplicated. Trigger related to EtOH and ongoing tob abuse. # Hepatitis: Likely EtOH induced. Viral Hep recently negative. Liver tests improving. # Hepatic Steatosis: EtOH induced # Polysubstance abuse # Endo Hx: No prior EGD/CSPY Plan: - Cont low fat diet - Cont good PO fluid intake - Agree with CIWA and banana bag - Encourage EtOH cessation and polysubstance abuse cessation - No plans for endoscopic eval at this time - OK for DC from GI standpoint Pt seen and examined with Dr. Braswell; please see attestation for further recs/ changes. <Mary Braswell - Last Filed: 08/13/18 15:08> Objective - Vital Signs/Intake and Output Vital Signs (last 24 hours): Temp Pulse Resp BP Pulse Ox 98.3 F 82 20 123/78 98 08/13/18 07:30 08/13/18 08:00 08/13/18 07:30 08/13/18 07:30 08/13/18 07:30 Intake and Output: 08/13/18 08/13/18 06:59 18:59 Intake Total 1100 Output Total 300 Balance 800 - Medications Medications: Current Medications Lorazepam (Ativan) 1 mg IVP Q6H PRN PRN Reason: Symptoms of alcohol withdrawl Last Admin: 08/13/18 08:04 Dose: 1 mg Nicotine (Nicoderm Cq) 1 patch TD DAILY CITLALI Last Admin: 08/13/18 10:00 Dose: 1 patch Pantoprazole Sodium (Protonix Inj) 40 mg IVP DAILY CITLALI Last Admin: 08/13/18 10:00 Dose: 40 mg Polyethylene Glycol (Miralax) 17 gm PO ONCE PRN PRN Reason: Constipation Last Admin: 08/13/18 11:31 Dose: 17 gm Tramadol HCl (Ultram) 50 mg PO TID PRN PRN Reason: Pain, moderate (4-7) Last Admin: 08/12/18 20:42 Dose: 50 mg - Labs Labs: 08/11/18 17:24 08/13/18 10:43 PT 11.6 SECONDS (9.7-12.2) 08/13/18 10:43 INR 1.1 08/13/18 10:43 Attending/Attestation - Attestation I have personally seen and examined this patient.: Yes I have fully participated in the care of the patient.: Yes I have reviewed all pertinent clinical information, including history, physical exam and plan: Yes Notes (Text): 08/13/18 15:07 I have seen and examined the pt with the GI fellow. Doing very well on current diet and minimal abdominal pain. No BMs today. Repeat LFTs stable and downtrending. Stable for d/c from GI standpoint. Encourage abstinence and should have repeat LFTs as an outpt in 2 wks.
[2018-08-13 10:55] LABS: INR 1.1; PROTHROMBIN TIME 11.6 SECONDS (9.7-12.2)
[2018-08-13 11:07] LABS: ALB/GLOB RATIO 1.4 (1.0-2.1); ALBUMIN 4.2 g/dL (3.5-5.0); ALT/SGPT 283 U/L (21-72); AST/SGOT 221 U/L (17-59); BLOOD UREA NITROGEN 7 mg/dL (9-20); CALCIUM 9.2 mg/dl (8.6-10.4); GFR NON-AFRICAN AMERICAN > 60
[2018-08-13] MEDS ORDERED: POLYETHYLENE GLYCOL 3350 17 GM/Dose PACKET PO PRN (11:18)
[2018-08-13] MEDS ORDERED: Multivitamin (MVI) 10 ML, Thiamine 100 MG, Folic Acid 1 MG in Sodium Chloride 0.9% 1,00... IV ONE (18:58)
[2018-08-13 20:34] LABS: IRON 51 ug/dL (49-181)
[2018-08-13 20:46] LABS: % IRON SATURATION 19 (20-55); TOTAL IRON BINDING CAPACITY 272 ug/dL (250-450)
--- NOTE | 2018-08-13 21:39 | PCM.PYCHPN ---
Psychiatric Progress Note - Psychiatric Progress Note Patient seen today, length of contact: 16 Mins Patient Chief Complaint: "I am feeling better today" Problems Identified/Issues Discussed: The pt is seen, chart reviewed, case is discussed with staff. The pt is compliant with medications and reports no side-effects. Symptoms are improving but needs more time to stabilize and to avoid relapse. Pt attends groups and activities. Support given, psycho-education provided. After care discussed. Medication Change: Yes Medical Record Reviewed: Yes Mental Status Examination - Cognitive Function Orientation: Person, Place, Situation, Time Memory: Intact Attention: WNL Concentration: WNL - Mood Mood: Anxious, Neutral - Affect Affect: Broad - Speech Speech: Appropriate - Formal Thought Process Formal Thought Process: No Impairment - Suicidal Ideation Suicidal Ideation: No - Homicidal Ideation Homicidal Ideation: No Goal/Treatment Plan - Goal/Treatment Plan Need for Continued Stay: Remain at risks for inpatient hospitalization, Discharge may exacerbated symptoms Progress Toward Problem(s) and Goals/Treatment Plan: Continue medications Support and psychoeducation daily Attend groups and activities daily Individual therapy After care planning by ZIYAD and the team
[2018-08-13 21:42] LABS: FOLATE 7.2 ng/mL
--- NOTE | 2018-08-13 23:49 | PN ---
This case was discusse with Dr. Carmona she is inagreement with treatment plan. DATE: 08/13/2018 SUBJECTIVE: This 28-year-old male came in with pancreatitis, alcohol withdrawal. The patient has a history of polysubstance abuse, ETOH, pancreatitis, hepatitis C. The patient is today at the bedside. The patient is alert, denying chest pain, shortness of breath, hematemesis, reports upper abdominal tenderness still, denies hematuria, hematochezia, fevers or chills. PHYSICAL EXAMINATION: GENERAL: The patient appeared in no acute distress, chronically ill. VITAL SIGNS: Temperature 98, pulse rate 90, blood pressure 129/84, respiratory rate 20, saturation 97% on room air. HEENT: Normocephalic and atraumatic. PERRLA. Mucous membranes moist. NECK: Supple. Normal inspection. No thyromegaly. RESPIRATORY: Clear to auscultation. No wheeze. No rhonchi. CARDIOVASCULAR: S1 and S2. No JVD. ABDOMEN: Soft, distended, hepatomegaly. No guarding. No tenderness. EXTREMITIES: The patient is moving all extremities. SKIN: Intact. No edema. NEUROLOGIC: The patient is alert and oriented x3. MEDICATIONS: The patient continues on multivitamin, vitamin C, thiamine, folic acid, Nicoderm patch, Protonix, MiraLax, and tramadol. LABORATORY DATA: No current laboratory. Last laboratory was from 08/11/2018. No current hematology. Chemistry from 08/13/2018, sodium 134, potassium 4.4, BUN 7, creatinine 0.6, GFR was 60, glucose 115. AST elevated 221, ALT elevated 283. Lipase was elevated now 2450. ASSESSMENT AND PLAN: This is a 28-year-old male who came in with abdominal pain, pancreatitis related to alcohol abuse. The patient has a history of polysubstance abuse. Discussed with the patient polysubstance sensation possibly inpatient rehab. The patient continues on tramadol, Protonix, nicotine patch, Ativan every 6 hours p.r.n. Thiamaine 100mg, Folate 1mg po, Psychiatrist is on case. Gastroenterology is on the case. We will repeat labs and follow clinical course. ALL ABOVE NOTED , AGREED WITH [employer] TREATMENT PLAN , LABS ,MEDS AND CHART NOTED , EDUCATION DONE, GI AND PSYCHE IS ON THE CASE Carlos Marks APN Eva Carmona MD MAK
[2018-08-14 08:19] LABS: HEMOGLOBIN 14.4 g/dL (12.0-18.0); MEAN CELL VOLUME 98.6 fL (80.0-94.0); MEAN CORPUSCULAR HEMOGLOBIN 34.9 pg (27.0-31.0); MEAN CORPUSCULAR HGB CONC 35.4 g/dL (33.0-37.0); MEAN PLATELET VOLUME 9.1 fL (7.2-11.7); RBC 4.13 Mil/uL (4.40-5.90); WHITE BLOOD COUNT 4.5 K/uL (4.8-10.8)
[2018-08-14 08:51] LABS: BLOOD UREA NITROGEN 8 mg/dL (9-20); CALCIUM 9.3 mg/dl (8.6-10.4); GFR NON-AFRICAN AMERICAN > 60
--- NOTE | 2018-08-14 21:37 | PN ---
This case was discussed with Dr. Carmona she is inagreement with treatment plan. DATE: 08/14/2018 SUBJECTIVE: The patient came in with pancreatitis, alcohol withdrawal. Has a history of EtOH, depression, pancreatitis due to alcohol abuse, substance abuse. I saw the patient today at the bedside. He was sitting in a chair beside the bed. He was looking more alert, looking comfortable. Denies chest pain, shortness of breath, hematuria, hematochezia, or hematemesis. Does report some upper quadrant pain. Reviewed abdominal CT scan, the patient is positive for pancreatitis. PHYSICAL EXAMINATION: VITAL SIGNS: Temperature 97.8, pulse rate 88, blood pressure 136/74, respiratory rate 20, and O2 sat is 97% on room air. GENERAL: The patient appeared in no acute distress. HEENT: Normocephalic, atraumatic, PERRLA. Mucous membranes moist. NECK: Supple. No thyromegaly. RESPIRATORY: Respirations, clear to auscultation. No wheeze. No rhonchi. CARDIOVASCULAR: S1 and S2. No JVD. ABDOMEN: Soft, distended. Some tenderness in upper right quadrant. SKIN: Intact. EXTREMITIES: The patient is moving all extremities, ambulating. NEUROLOGIC: The patient is alert and oriented x3. MEDICATIONS: The patient is on folic acid 1 mg, Ativan IV push, Nicoderm, Protonix, MiraLax, vitamin B1, Ultram. LABORATORY DATA: On 08/14/2018, white blood cells 4.5, hemoglobin 14.4, hematocrit 40.8, platelet count 207. Sodium 137, potassium 4, BUN is 8, creatinine 0.7. GFR is over 60. Hemoglobin A1c is 4.9. Elevated liver enzymes, AST 221, ALT 283, lipase 2450 from 08/11/2018. TSH 3.19. ASSESSMENT AND PLAN: Mr. Bhatt is a 28-year-old male with a long history of chronic substance abuse, alcohol abuse, nicotine dependence. The patient has history of depression. He is currently treated for pancreatitis due to alcohol intoxication. Folic acid 1 mg by mouth daily ordered today and thiamine 100 mg by mouth daily. Also ordered for Nicoderm today. The patient continues on MiraLax, Protonix, and Ativan every 6 hours. The patient is seen by Psychiatry and Gastroenterology who are on the case. Reviewed labs. We will follow clinical course. ALL ABOVE NOTED , AGREED WITH [employer] TREATMENT PLAN , LABS ,MEDS AND CHART NOTED , EDUCATION DONE Carlos Marks APN Eva Carmona MD MAK
--- NOTE | 2018-08-15 07:18 | HP ---
The patient was seen and examined at the bedside on 08/12/2018. CHIEF COMPLAINT: Abdominal pain, alcohol intoxication. HISTORY OF PRESENT ILLNESS: The patient is a 28-year-old male with history of ethanol, Xanax and cocaine abuse who came to the Emergency Department of [facility] for detoxification. Also complains of left-sided abdominal pain for two days with occasional vomiting. The patient had pancreatitis three months ago and recent gastritis and came to the emergency room. Last alcohol was around 6 p.m. one day before the admission. Last cocaine was the day of admission. No fever. No chills. No hematuria. No hematochezia. We admitted the patient and called psych consult. PAST MEDICAL HISTORY: Anxiety, gastritis, pancreatitis, seizures four years ago and rule out benzo withdrawal seizures, history of tonsillectomy. FAMILY HISTORY: Father and mother, noncontributory. HABITS: Tobacco: Yes. Alcohol: Yes. Substance abuse: Yes, crack cocaine and Xanax. ALLERGIES: THE PATIENT IS ALLERGY WITH PENICILLIN. HOME MEDICATIONS: Reviewed by me. REVIEW OF SYSTEMS: The patient was seen and examined at the bedside. Looking comfortable. No fever. No chills. No hematuria. No hematochezia. No headache. No dizziness. No chest pain and no palpitation at the moment. PHYSICAL EXAMINATION: VITAL SIGNS: Temperature 98.1, pulse 78, blood pressure 129/80, respiratory rate 20. HEENT: Head: Normocephalic and atraumatic. Eyes: PERRLA. Extraocular muscles intact. Conjunctivae clear. Nose patent. Mucous membranes moist. NECK: Supple. No carotid bruits. No JVD or thyromegaly. CHEST: Bilaterally symmetrical. HEART: S1 and S2 positive. LUNGS: Clear to auscultation. ABDOMEN: Soft. Bowel sounds present. No organomegaly. EXTREMITIES: No edema. No cyanosis. NEUROLOGIC: The patient is awake and alert. Moving all four extremities. No focal deficits. LABORATORY DATA: White blood cells 7, hemoglobin 15.2, hematocrit 44.2, platelets 231. Sodium 136, potassium 5, BUN 5, creatinine 0.5, glucose 86. AST 293, ALT 344. ASSESSMENT AND PLAN: The patient is a 28-year-old male with abnormal liver function tests. Drug screen is positive for cocaine. Alcohol level is 48. Has history of anxiety, gastritis, pancreatitis. Seizures four years ago, rule out benzodiazepine withdrawal. History of tonsillectomy. Came for detoxification. Did CAT scan of abdomen and pelvis. Looks like the patient has acute pancreatitis, small amount of free fluid in the abdomen and pelvis noted, diffuse [id number] low attenuation of the liver suggestive of advanced hepatic steatosis, [id number] hepatomegaly. We admitted the patient and called psychiatric consult and gastroenterology consult. Started on Ativan, MiraLax, NS, nicotine patch, Protonix, tramadol. Repeat labs. We will follow up. Eva Carmona MD MTDD
--- NOTE | 2018-08-15 12:54 | PCM.PYCHPN ---
Psychiatric Progress Note - Psychiatric Progress Note Patient seen today, length of contact: 16 Mins Patient Chief Complaint: I am still withdrawing from alcohol.. Problems Identified/Issues Discussed: Patient was seen and evaluated, chart reviewed and discussed the staff. Patient reports of drinking more than 4 points of liquor daily. He reports withdrawal symptoms from drinking including shakes, anxiety, headaches, sweating and cramps. He reports depressed mood, however he denies any suicidal ideation or any homicidal ideation. He denies any auditory hallucinations or any paranoia. He is taking medication but still complaining of withdrawal symptoms. Supportive therapy was given CIWA more than 12 Medication Change: Yes Medical Record Reviewed: Yes Mental Status Examination - Cognitive Function Orientation: Person, Place, Situation, Time Memory: Intact Attention: WNL Concentration: Poor Association: WNL Fund of Knowledge: Poor - Mood Mood: Depressed, Anxious - Affect Affect: Constricted - Speech Speech: Appropriate - Formal Thought Process Formal Thought Process: No Impairment - Suicidal Ideation Suicidal Ideation: No - Homicidal Ideation Homicidal Ideation: No Goal/Treatment Plan - Goal/Treatment Plan Need for Continued Stay: Remain at risks for inpatient hospitalization, Discharge may exacerbated symptoms Progress Toward Problem(s) and Goals/Treatment Plan: Alcohol withdrawal Alcohol use disorder, Severe Cocaine use disorder, severe Anxyolitic use disorder, severe GA for abstinence CBT for relapse prevention Encourage MAT Attend groups and activities Supportive therapy and psychoeducation Ativan Taper Trazodone for insomnia Multivitamin/thiamine/folic acid As needed medications All risks, benefits and alternatives of the meds discussed, and the pt agreed and understood. Refer to rehab or IOP, and self-help groups Teach healthy lifestyle methods, i.e. diet, exercise, meditation Smoking cessation with GA Nicotine patch if needed Since patient is still withdrawing, patient needs to go to detox after medical clearance
--- NOTE | 2018-08-15 12:59 | CP.PCM.PCO ---
Physician Communication Note - Physician Communication Note Physician Communication Note: Pt medically cleared to transfer to detox unit as per Dr. Acosta
--- NOTE | 2018-08-15 16:11 | PCM.BM ---
<Edgardo Rapp - Last Filed: 08/15/18 16:09> Treatment Plan Problems - Problems identified on initial assessmt Anxiety related to Substance Use Date Initiated: 08/15/18 Time Initiated: 16:10 Status: Active Denial Date Initiated: 08/15/18 Time Initiated: 16:10 Status: Active Defensive Coping Date Initiated: 08/15/18 Time Initiated: 16:10 Status: Active Treatment assets and liabiliti Patient Assests: cooperative, negotiates basic needs Patient Liabilities: substance abuse - Milieu Protocol Maintain good personal hygiene: daily Encourage regular showers, daily Remind patient to perform daily oral care, daily Assist patient to perform ADL's Maintain personal safety: every shift Educate patient to report safety concerns to staff, every shift Monitor environment for contraband/sharps Medication safety: Monitor for expected outcome, potential side effects: every shift, Assess barriers to learning: every shift, Assess readiness for medication education: every shift Milieu Narrative: Alcohol withdrawal Alcohol use disorder, Severe Cocaine use disorder, severe Anxyolitic use disorder, severe CO for abstinence CBT for relapse prevention Encourage MAT Attend groups and activities Supportive therapy and psychoeducation Ativan Taper Trazodone for insomnia Multivitamin/thiamine/folic acid As needed medications All risks, benefits and alternatives of the meds discussed, and the pt agreed and understood. Refer to rehab or IOP, and self-help groups Teach healthy lifestyle methods, i.e. diet, exercise, meditation Smoking cessation with CO Nicotine patch if needed Since patient is still withdrawing, patient needs to go to detox after medical clearance Discharge/Continuing Care - Treatment Team Participation Patient/Family/SO Statement: Alcohol withdrawal Alcohol use disorder, Severe Cocaine use disorder, severe Anxyolitic use disorder, severe CO for abstinence CBT for relapse prevention Encourage MAT Attend groups and activities Supportive therapy and psychoeducation Ativan Taper Trazodone for insomnia Multivitamin/thiamine/folic acid As needed medications All risks, benefits and alternatives of the meds discussed, and the pt agreed and understood. Refer to rehab or IOP, and self-help groups Teach healthy lifestyle methods, i.e. diet, exercise, meditation Smoking cessation with CO Nicotine patch if needed Since patient is still withdrawing, patient needs to go to detox after medical clearance <Grisel Wahl - Last Filed: 08/17/18 12:50> - Diagnosis (1) Sedative, hypnotic or anxiolytic use disorder, severe, dependence Status: Acute Interventions: 08/17/18 12:50 * Assess 7x/week regarding severity of withdrawal * Educate regarding risks, benefits, side effects and alternatives of medications * Use Motivational Interviewing for abstinence * Use CBT for relapse prevention * Medication management for withdrawal symptoms * Encourage medication assisted treatment * (2) Alcohol dependence Status: Acute Interventions: 08/17/18 12:50 * Assess 7x/week regarding severity of withdrawal * Educate regarding risks, benefits, side effects and alternatives of medications * Use Motivational Interviewing for abstinence * Use CBT for relapse prevention * Medication management for withdrawal symptoms * Encourage medication assisted treatment *
--- NOTE | 2018-08-16 10:14 | PCM.PYCHPN ---
Psychiatric Progress Note - Psychiatric Progress Note Patient seen today, length of contact: 16 Mins Patient Chief Complaint: "I feel sick" Problems Identified/Issues Discussed: The pt is seen again, chart reviewed, and case is discussed with the team. The pt denies any side-effects from meds. Attends activities and groups, brief individual therapy provided Not ready for discharge due to ongoing symptoms and high relapse risk COWS>10. Sbx dose 16 mg confirmed but he wants to lower to 8 mg After care discussed again. Medication Change: Yes (detox adjusted) Medical Record Reviewed: Yes Mental Status Examination - Cognitive Function Orientation: Person, Place, Situation, Time Memory: Intact Attention: WNL Concentration: Poor Association: WNL Fund of Knowledge: Poor - Mood Mood: Depressed, Anxious - Affect Affect: Constricted - Speech Speech: Appropriate - Formal Thought Process Formal Thought Process: No Impairment - Suicidal Ideation Suicidal Ideation: No - Homicidal Ideation Homicidal Ideation: No Goal/Treatment Plan - Goal/Treatment Plan Need for Continued Stay: Remain at risks for inpatient hospitalization, Discharge may exacerbated symptoms, Severe functional impairment Progress Toward Problem(s) and Goals/Treatment Plan: Continue medications Support and psychoeducation daily Attend groups and activities daily Individual therapy After care planning by ZIYAD and the team
[2018-08-16] MEDS ORDERED: Aluminum Hydroxide/Magnesium Hydroxide Susp (30 mL) PO PRN (10:27)
[2018-08-16] MEDS: Buprenorphine Hydrochloride 2 mg SL SCH (10:52)
[2018-08-16] MEDS: Multiple Vitamins Tab PO SCH (11:45)
[2018-08-17] MEDS: Multiple Vitamins Tab PO SCH (09:24)
[2018-08-17] MEDS: Buprenorphine Hydrochloride 2 mg SL SCH (09:24)
--- NOTE | 2018-08-17 12:51 | PCM.PYCHPN ---
Psychiatric Progress Note - Psychiatric Progress Note Patient seen today, length of contact: 16 Mins Patient Chief Complaint: "I am better" Problems Identified/Issues Discussed: The pt is seen, chart reviewed, case discussed with staff. The pt is compliant with medications and reports no side-effects. Symptoms are improving but needs more time to stabilize. Pt attends groups and activities. Support given, psycho-education provided. After care discussed. Medication Change: Yes (detox adjusted) Medical Record Reviewed: Yes Mental Status Examination - Cognitive Function Orientation: Person, Place, Situation, Time Memory: Intact Attention: WNL Concentration: Poor Association: WNL Fund of Knowledge: Poor - Mood Mood: Depressed, Anxious - Affect Affect: Constricted - Speech Speech: Appropriate - Formal Thought Process Formal Thought Process: No Impairment - Suicidal Ideation Suicidal Ideation: No - Homicidal Ideation Homicidal Ideation: No Goal/Treatment Plan - Goal/Treatment Plan Need for Continued Stay: Remain at risks for inpatient hospitalization, Discharge may exacerbated symptoms, Severe functional impairment Progress Toward Problem(s) and Goals/Treatment Plan: Continue medications Support and psychoeducation daily Attend groups and activities daily Individual therapy After care planning by ZIYAD and the team
[2018-08-18] MEDS: Buprenorphine Hydrochloride 2 mg SL SCH (09:20)
[2018-08-18] MEDS: Multiple Vitamins Tab PO SCH (09:20)
--- NOTE | 2018-08-18 10:59 | RAD ---
Chest x-ray single frontal view History: Rehab. COMPARISON: 11/29/2017 FINDINGS: No focal infiltrate or effusion. Heart size within normal limits. Degenerative changes in the spine. Impression: No focal infiltrate or effusion.
--- NOTE | 2018-08-18 11:20 | PCM.PYCHPN ---
Psychiatric Progress Note - Psychiatric Progress Note Patient seen today, length of contact: 16 Mins Patient Chief Complaint: "I am not decided" Problems Identified/Issues Discussed: The pt is seen, chart reviewed, case discussed with staff. Support and psychoeducation given, CBT and KS used briefly Pt is improving slowly and needs more time, still has ongoing symptoms. No SEs from medications, risks discussed. After care discussed - He was planing to go to [facility] in [facility] but he may change his mind. He asked to be tapered off of Suboxone in case he goes there Risks discussed Medication Change: Yes (detox adjusted) Medical Record Reviewed: Yes Mental Status Examination - Cognitive Function Orientation: Person, Place, Situation, Time Memory: Intact Attention: WNL Concentration: Poor Association: WNL Fund of Knowledge: Poor - Mood Mood: Depressed, Anxious - Affect Affect: Constricted - Speech Speech: Appropriate - Formal Thought Process Formal Thought Process: No Impairment - Suicidal Ideation Suicidal Ideation: No - Homicidal Ideation Homicidal Ideation: No Goal/Treatment Plan - Goal/Treatment Plan Need for Continued Stay: Remain at risks for inpatient hospitalization, Discharge may exacerbated symptoms, Severe functional impairment Progress Toward Problem(s) and Goals/Treatment Plan: Continue medications Support and psychoeducation daily Attend groups and activities daily Individual therapy After care planning by the team - Rehab Estimated Date of D/C: 08/21/18
[2018-08-19] MEDS: Multiple Vitamins Tab PO SCH (09:41)
[2018-08-19] MEDS: Buprenorphine Hydrochloride 2 mg SL SCH (09:42)
--- NOTE | 2018-08-19 11:28 | PCM.PYCHPN ---
Psychiatric Progress Note - Psychiatric Progress Note Patient seen today, length of contact: 16 Mins Patient Chief Complaint: I am still withdrawing . Problems Identified/Issues Discussed: Patient was seen and evaluated, chart reviewed and discussed the staff. He reports withdrawal symptoms from drinking including shakes, anxiety, headaches, sweating and cramps. He reports depressed mood, however he denies any suicidal ideation or any homicidal ideation. He denies any auditory hallucinations or any paranoia. He is taking medication but still complaining of withdrawal symptoms. Supportive therapy was given CIWA still high Medication Change: Yes (detox adjusted) Medical Record Reviewed: Yes Mental Status Examination - Cognitive Function Orientation: Person, Place, Situation, Time Memory: Intact Attention: WNL Concentration: Poor Association: WNL Fund of Knowledge: Poor - Mood Mood: Depressed, Anxious - Affect Affect: Constricted - Speech Speech: Appropriate - Formal Thought Process Formal Thought Process: No Impairment - Suicidal Ideation Suicidal Ideation: No - Homicidal Ideation Homicidal Ideation: No Goal/Treatment Plan - Goal/Treatment Plan Need for Continued Stay: Remain at risks for inpatient hospitalization, Discharge may exacerbated symptoms, Severe functional impairment Progress Toward Problem(s) and Goals/Treatment Plan: Alcohol withdrawal Alcohol use disorder, Severe Cocaine use disorder, severe Anxyolitic use disorder, severe CO for abstinence CBT for relapse prevention Encourage MAT Attend groups and activities Supportive therapy and psychoeducation Ativan Taper Trazodone for insomnia Multivitamin/thiamine/folic acid As needed medications All risks, benefits and alternatives of the meds discussed, and the pt agreed and understood. Refer to rehab or IOP, and self-help groups Teach healthy lifestyle methods, i.e. diet, exercise, meditation Smoking cessation with CO Nicotine patch if needed Since patient is still withdrawing, patient needs to go to detox after medical clearance Estimated Date of D/C: 08/21/18
[2018-08-20] MEDS: Buprenorphine Hydrochloride 2 mg SL SCH (09:14)
[2018-08-20] MEDS: Multiple Vitamins Tab PO SCH (09:17)
--- NOTE | 2018-08-21 08:45 | PCM.PYCHDC ---
Mental Status Examination - Mental Status Examination Orientation: Person, Place, Situation, Time Memory: Intact Mood: Anxious Affect: Broad Speech: Appropriate Attention: WNL Concentration: WNL Association: WNL Fund of Knowledge: WNL Formal Thought Process: No Impairment Suicidal Ideation: No Current Homicidal Ideation?: No Discharge Summary - Discharge Note Reason for Hospitalization: Alcohol and benzo detox Consultations:: List each consultation separately and include: 1. Reason for request. 2. Findings. 3. Follow-up Summary of Hospital Course include:: 1. Description of specific treatment plan utilized for patients during their course of treatmen. 2. Summarize the time- course for resolution of acute symptoms and/or regressed behaviors. 3. Describe issues identified and worked on during hospitalization. 4. Describe medication utilized. 5. Describe medical problems identified and treated. 6. Reassessment of suicide risk Summary of Hospital Course: The pt was admitted and started on treatment with psychotherapy, support, psychoeducation and medications. WI and CBT used. The pt attended groups and activities, as well as milieu therapy. All the risks and benefits of medications are discussed and the patient understood and agreed. The pt improved with the treatments provided. After care discussed with the patient. He finally decided to go to [facility]. He asked us to detox him from his suboxone. Risks of coming off MAT discussed - Final Diagnosis (DSM 5) Condition upon Discharge: STABLE DSM 5: Alcohol withdrawal Alcohol use disorder, Severe Cocaine use disorder, severe Sedative, hypnotic or anxyolitic use disorder, severe, with withdrawal Opioid use d/o - severe, on maintenance Disposition: REHAB FACILITY/REHAB UNIT Follow-up Treatment Plan: Continue below medications after discharge. Follow after care plan as discussed. Use relapse prevention skills Return to ER or call 911 if suicidal, homicidal or symptoms relapse. Stay away from stress, alcohol and drugs. See primary doctor regularly and get labs. Prescriptions/Medication Reconciliation: QUEtiapine [Seroquel] 100 mg PO HS #30 tab QUEtiapine [SEROquel] 50 mg PO DAILY #30 tab traZODone [Desyrel] 50 mg PO HS PRN #30 tab PRN Reason: Insomnia
[2018-08-21] MEDS: Multiple Vitamins Tab PO SCH (09:29)
[2018-08-21] MEDS: Buprenorphine Hydrochloride 2 mg SL SCH (09:29)
[2018-08-21 10:08] VITALS: BP 102/69; PULSE 87; RESP 18; TEMP 98.7; O2SAT 97
== END 2018-08-21 10:45 | DRG 750 ==
LOC: C.ER 15:03 → C.9E 18:15 → C.6T 19:19 → C.7D 08-15 13:01
PROVIDERS: ADMIT Psychiatry & Neurology Psychiatry; ATTEND Psychiatry & Neurology Psychiatry
PROC: HZ2ZZZZ Detoxification Services for Substance Abuse Treatment (ICD-10-PCS; principal; 2018-08-11)
PROC: HZ59ZZZ Individual Psychotherapy for Substance Abuse Treatment, Supportive (ICD-10-PCS; 2018-08-11)
PROC: HZ46ZZZ Group Counseling for Substance Abuse Treatment, Psychoeducation (ICD-10-PCS; 2018-08-11)
DX: F10.230 Alcohol dependence with withdrawal, uncomplicated (principal); K85.20 Alcohol induced acute pancreatitis without necrosis or infection; F13.230 Sedative, hypnotic or anxiolytic dependence with withdrawal, uncomplicated; F10.220 Alcohol dependence with intoxication, uncomplicated; F14.20 Cocaine dependence, uncomplicated; K86.0 Alcohol-induced chronic pancreatitis; K70.10 Alcoholic hepatitis without ascites; Y90.2 Blood alcohol level of 40-59 mg/100 ml; F32.9 Major depressive disorder, single episode, unspecified; F17.210 Nicotine dependence, cigarettes, uncomplicated; F41.9 Anxiety disorder, unspecified; G40.909 Epilepsy, unspecified, not intractable, without status epilepticus; G47.00 Insomnia, unspecified; H91.92 Unspecified hearing loss, left ear